=== PATIENT | male | born 1945 | race Caucasian/White ===

== ENCOUNTER → 2016-06-02 | Outpatient (CLI) | payer OTHER ==
[2016-06-02 12:21] LABS: BASO % 0.6 %; BASO ABS # 0.04 K/uL (0-0.2); COMPLETE YES; HEMATOCRIT 47.9 % (42-52); IG% 0.2 %; LYMPH % 26.1 %; LYMPH ABS # 1.61 K/uL (1.2-3.4); MEAN CELL VOLUME 91.8 fL (80-100); MEAN CORPUSCULAR HEMOGLOBIN 31.6 pg (25-34); MEAN CORPUSCULAR HGB CONC 34.4 g/dl (32-36); MEAN PLATELET VOLUME 10.6 fL (7.4-10.4); MONO % 7.3 %; NEUT % 64.8 %; PLATELET COUNT 234 K/uL (130-400); RED BLOOD COUNT 5.22 M/uL (4.7-6.1); WHITE BLOOD COUNT 6.16 K/uL (4.8-10.8)
[2016-06-02 13:03] LABS: ALB/GLOB RATIO 1.4 (0.9-2); ALKALINE PHOSPHATASE 69 U/L (45-117); ALT/SGPT 23 U/L (12-78); AST/SGOT 10 U/L (15-37); BLOOD UREA NITROGEN 15 mg/dl (7-18); BUN/CREATININE RATIO 16.8 (10-20); CALCIUM 9.5 mg/dl (8.5-10.1); CARBON DIOXIDE 28 mmol/L (21-32); CHLORIDE 104 mmol/L (98-107); CREATININE 0.87 mg/dl (0.60-1.40); GLUCOSE 98 mg/dl (70-99); SODIUM 141 mmol/L (136-145)
--- NOTE | 2016-06-03 08:51 | CODING QUERY NO DIAGNOSIS ---
TREATMENT RENDERED WITHOUT A DIAGNOSIS To promote full compliance with coding requirements relating to patient care, physician participation is requested in all cases of web development manager uncertainty. Please assist us with providing a diagnosis/symptom for the test(s) below: A diagnosis/symptom was not documented on your Order. A valid diagnosis/symptom is required to bill all insurances. Please remember that we are unable to code a diagnosis of rule out, probable, possible, questionable, or suspected. DATE OF SERVICE: 06/02/16 Tests that require a diagnosis: * IMMUNOGLOBULIN ASSAY, QUANT DIAGNOSIS: * KAPPA/LAMBDA LIGHT CHAINS, FREE W/RATIO, SERUM DIAGNOSIS: * PROTEIN ELECTROPHORESIS PANEL, 24 HR URINE DIAGNOSIS: * SERUM PROTEIN, ELECTROPHORESIS DIAGNOSIS: * CBC W/AUTO DIFF DIAGNOSIS: * CMP DIAGNOSIS: * IMMUNOFIXATION, 24 HR URINE DIAGNOSIS: Provider Signature: Date: Thank you Sintia Gould [facility] Information Management Once completed, please kindly fax back to [phone] For questions please call [phone]
[2016-06-03 11:03] LABS: FREE KAPPA 16.6 MG/L (3.3-19.4); FREE KAPPA/LAMBDA RATIO 1.43 (0.26-1.65); FREE LAMBDA 11.6 MG/L (5.7-26.3)
[2016-06-04 06:43] LABS: ALBUMIN 4.5 G/DL (3.8-4.8); GAMMA GLOBULIN 0.6 G/DL (0.8-1.7); IMMUNOFIXATION IGA SERUM 442 MG/DL (81-463); IMMUNOFIXATION IGG SERUM 558 MG/DL (694-1618); IMMUNOFIXATION IGM SERUM 67 MG/DL (48-271); TOTAL PROTEIN 6.9 G/DL (6.2-8.3)
[2016-06-07 11:54] LABS: CREATININE UR 111 MG/DL (20-370)
== END | disposition home or self-care (01) ==
LOC: C.LABPVFM 07:42
PROVIDERS: ATTEND Internal Medicine Hematology & Oncology
DX: D47.2 Monoclonal gammopathy (principal)

== ENCOUNTER → 2016-11-12 | Outpatient (CLI) | payer OTHER ==
[2016-11-12 13:17] LABS: CALCIUM 9.4 mg/dl (8.5-10.1)
[2016-11-12 13:19] LABS: ALT/SGPT 20 U/L (12-78); BLOOD UREA NITROGEN 11 mg/dl (7-18); BUN/CREATININE RATIO 11.4 (10-20); CARBON DIOXIDE 29 mmol/L (21-32); CHLORIDE 104 mmol/L (98-107); CHOLESTEROL 147 mg/dl (0-200); CREATININE 0.97 mg/dl (0.60-1.40); GLUCOSE 104 mg/dl (70-99); POTASSIUM 4.2 mmol/L (3.5-5.1); SODIUM 141 mmol/L (136-145); TRIGLYCERIDES 96 mg/dl (0-150); VERY LOW DENSITY LIPOPROT CALC 19 mg/dl
[2016-11-12 13:20] LABS: ESTIMATED AVERAGE GLUCOSE 108 mg/dl; HA1C FLAG Normal (Normal)
[2016-11-12 13:23] LABS: ALB/GLOB RATIO 1.3 (0.9-2); ALKALINE PHOSPHATASE 68 U/L (45-117); AST/SGOT 15 U/L (15-37); CHOLESTEROL/HDL RATIO 2.5; HDL CHOLESTEROL 59 mg/dl; LDL CHOLESTEROL CALCULATED 69 mg/dl
== END | disposition home or self-care (01) ==
LOC: C.LABPVFM 07:41
PROVIDERS: ATTEND Family Medicine
DX: R73.9 Hyperglycemia, unspecified (principal); E78.00 Pure hypercholesterolemia, unspecified; I10 Essential (primary) hypertension

== ENCOUNTER → 2017-01-14 | Outpatient (CLI) | payer OTHER ==
[2017-01-14 12:47] LABS: BASO % 0.4 %; BASO ABS # 0.02 K/uL (0-0.2); COMPLETE YES; EOS % 1.7 %; HEMATOCRIT 45.5 % (42-52); IG% 0.2 %; LYMPH % 22.7 %; LYMPH ABS # 1.21 K/uL (1.2-3.4); MEAN CELL VOLUME 91.5 fL (80-100); MEAN PLATELET VOLUME 10.9 fL (7.4-10.4); MONO % 9.2 %; NEUT % 65.8 %; PLATELET COUNT 220 K/uL (130-400); RED BLOOD COUNT 4.97 M/uL (4.7-6.1); WHITE BLOOD COUNT 5.32 K/uL (4.8-10.8)
[2017-01-14 13:03] LABS: ALKALINE PHOSPHATASE 67 U/L (45-117); ALT/SGPT 25 U/L (12-78); AST/SGOT 14 U/L (15-37); BLOOD UREA NITROGEN 10 mg/dl (7-18); BUN/CREATININE RATIO 12.6 (10-20); CALCIUM 9.1 mg/dl (8.5-10.1); CARBON DIOXIDE 28 mmol/L (21-32); CHLORIDE 107 mmol/L (98-107); CREATININE 0.81 mg/dl (0.60-1.40); GLUCOSE 100 mg/dl (70-99); SODIUM 139 mmol/L (136-145)
[2017-01-14 13:04] LABS: ALB/GLOB RATIO 1.3 (0.9-2)
[2017-01-17 11:10] LABS: FREE KAPPA 16.8 MG/L (3.3-19.4); FREE KAPPA/LAMBDA RATIO 1.65 (0.26-1.65); FREE LAMBDA 10.2 MG/L (5.7-26.3)
[2017-01-18 10:31] LABS: ALBUMIN 4.1 G/DL (3.8-4.8); GAMMA GLOBULIN 0.5 G/DL (0.8-1.7); TOTAL PROTEIN 6.5 G/DL (6.2-8.3)
== END | disposition home or self-care (01) ==
LOC: C.LABPVFM 07:38
PROVIDERS: ATTEND Internal Medicine Hematology & Oncology
DX: D47.2 Monoclonal gammopathy (principal)

== ENCOUNTER → 2017-02-14 | Outpatient (CLI) | payer OTHER | END | disposition home or self-care (01) | LOC: C.LAB1850 10:05 | PROVIDERS: ATTEND Internal Medicine Rheumatology | DX: E55.9 Vitamin D deficiency, unspecified (principal); M80.08XA Age-related osteoporosis with current pathological fracture, vertebra(e), initial encounter for fracture; M81.0 Age-related osteoporosis without current pathological fracture ==

== ENCOUNTER → 2017-03-14 | Outpatient (CLI) | payer OTHER | END | disposition home or self-care (01) | LOC: C.MAMM 10:24 | PROVIDERS: ATTEND Internal Medicine Rheumatology | DX: M80.08XA Age-related osteoporosis with current pathological fracture, vertebra(e), initial encounter for fracture (principal) ==

== ENCOUNTER → 2017-05-12 | Outpatient (CLI) | payer OTHER ==
[2017-05-12 13:35] LABS: ALT/SGPT 20 U/L (12-78); AST/SGOT 14 U/L (15-37); BLOOD UREA NITROGEN 13 mg/dl (7-18); BUN/CREATININE RATIO 13.7 (10-20); CARBON DIOXIDE 31 mmol/L (21-32); CHLORIDE 103 mmol/L (98-107); CREATININE 0.93 mg/dl (0.60-1.40); GLUCOSE 97 mg/dl (70-99); SODIUM 136 mmol/L (136-145)
[2017-05-12 13:38] LABS: ALB/GLOB RATIO 1.2 (0.9-2); ALKALINE PHOSPHATASE 79 U/L (45-117); CHOLESTEROL 118 mg/dl (0-200); CHOLESTEROL/HDL RATIO 2.1; HDL CHOLESTEROL 56 mg/dl; LDL CHOLESTEROL CALCULATED 45 mg/dl; TRIGLYCERIDES 86 mg/dl (0-150); VERY LOW DENSITY LIPOPROT CALC 17 mg/dl
== END | disposition home or self-care (01) ==
LOC: C.LABPVFM 07:53
PROVIDERS: ATTEND Family Medicine
DX: E78.00 Pure hypercholesterolemia, unspecified (principal); I10 Essential (primary) hypertension; M81.0 Age-related osteoporosis without current pathological fracture; D47.2 Monoclonal gammopathy

== ENCOUNTER → 2017-07-12 | Outpatient (CLI) | payer OTHER ==
[2017-07-12 12:42] LABS: BASO % 0.7 %; BASO ABS # 0.04 K/uL (0-0.2); EOS ABS # 0.06 K/uL (0-0.5); HEMATOCRIT 48.4 % (42-52); HEMOGLOBIN 16.7 g/dL (14.0-18.0); IG# 0.01 K/uL (0.00-0.02); LYMPH % 24.2 %; LYMPH ABS # 1.42 K/uL (1.2-3.4); MEAN CELL VOLUME 92.2 fL (80-100); MEAN CORPUSCULAR HEMOGLOBIN 31.8 pg (25-34); MEAN CORPUSCULAR HGB CONC 34.5 g/dl (32-36); MEAN PLATELET VOLUME 10.5 fL (7.4-10.4); MONO % 6.8 %; NEUT % 67.1 %; NEUT ABS # 3.94 K/uL (1.4-6.5); PLATELET COUNT 225 K/uL (130-400); RED CELL DISTRIBUTION WIDTH CV 13.2 % (11.5-14.5); RED CELL DISTRIBUTION WIDTH SD 44.3 fL (36.4-46.3); WHITE BLOOD COUNT 5.87 K/uL (4.8-10.8)
[2017-07-12 12:52] LABS: ALBUMIN 4.1 gm/dl (3.4-5.0); ALT/SGPT 24 U/L (12-78); AST/SGOT 13 U/L (15-37); BLOOD UREA NITROGEN 15 mg/dl (7-18); CALCIUM 9.2 mg/dl (8.5-10.1); CARBON DIOXIDE 28 mmol/L (21-32); CREATININE 1.04 mg/dl (0.60-1.40); GLUCOSE 95 mg/dl (70-99); POTASSIUM 3.8 mmol/L (3.5-5.1); SODIUM 137 mmol/L (136-145)
[2017-07-12 12:54] LABS: ALKALINE PHOSPHATASE 80 U/L (45-117); TOTAL PROTEIN 7.8 gm/dl (6.4-8.2)
== END | disposition home or self-care (01) ==
LOC: C.LABPVFM 07:35
PROVIDERS: ATTEND Internal Medicine Hematology & Oncology
DX: D47.2 Monoclonal gammopathy (principal)

== ENCOUNTER → 2018-01-09 | Outpatient (CLI) | payer OTHER ==
[2018-01-09 12:44] LABS: BASO % 0.3 %; BASO ABS # 0.02 K/uL (0-0.2); EOS % 1.4 %; HEMATOCRIT 51.1 % (42-52); HEMOGLOBIN 17.8 g/dL (14.0-18.0); IG# 0.01 K/uL (0.00-0.02); MEAN CELL VOLUME 93.4 fL (80-100); MEAN CORPUSCULAR HEMOGLOBIN 32.5 pg (25-34); MEAN CORPUSCULAR HGB CONC 34.8 g/dl (32-36); MEAN PLATELET VOLUME 10.8 fL (7.4-10.4); MONO % 5.6 %; MONO ABS # 0.39 K/uL (0.11-0.59); NEUT % 66.6 %; PLATELET COUNT 237 K/uL (130-400); RED CELL DISTRIBUTION WIDTH CV 13.3 % (11.5-14.5); RED CELL DISTRIBUTION WIDTH SD 45.4 fL (36.4-46.3); WHITE BLOOD COUNT 6.92 K/uL (4.8-10.8)
[2018-01-09 13:37] LABS: ALKALINE PHOSPHATASE 81 U/L (45-117); ALT/SGPT 22 U/L (12-78); AST/SGOT 13 U/L (15-37); BLOOD UREA NITROGEN 15 mg/dl (7-18); CALCIUM 9.2 mg/dl (8.5-10.1); CARBON DIOXIDE 26 mmol/L (21-32); GLUCOSE 97 mg/dl (70-99); SODIUM 135 mmol/L (136-145); TOTAL PROTEIN 7.5 gm/dl (6.4-8.2)
== END | disposition home or self-care (01) ==
LOC: C.LABPVFM 07:52
PROVIDERS: ATTEND Internal Medicine Hematology & Oncology
DX: D47.2 Monoclonal gammopathy (principal)

== ENCOUNTER 2021-10-09 20:27 | Observation (INO) ==
[2021-10-09] MEDS ORDERED: methylPREDNISolone 125 MG/2 ML VIAL IV STA (20:53)
[2021-10-09] MEDS ORDERED: ALBUTEROL HFA 8 GM INHALER INH ONE (20:53)
[2021-10-09 21:45] LABS: Hematocrit (blood only) 46.3 % (42-52); Hemoglobin 15.9 g/dL (14.0-18.0); Mean Corpuscular Hemoglobin 31.6 pg (25-34); Mean Corpuscular Hgb Conc 34.3 g/dL (32-36); Mean Platelet Volume 10.3 fL (7.4-10.4); Platelet Count 196 K/uL (130-400); RDW Coefficient of Variation 13.2 % (11.5-14.5); Red Blood Count 5.03 M/uL (4.7-6.1); White Blood Count 6.96 K/uL (4.8-10.8)
[2021-10-09 21:58] LABS: D Dimer 1420 ug/L FEU (0-500)
[2021-10-09 22:07] LABS: Influenza A virus by PCR Negative (Neg); Influenza B virus by PCR Negative (Neg); RSV by PCR Negative (Neg); SARS CoV2 RNA(COVID-19) InHosp NEGATIVE (Negative)
[2021-10-09 22:14] LABS: Basophils # (auto) 0.01 K/uL (0-0.2); Basophils % (auto) 0.1 %; Immature Granulocytes # (auto) 0.02 K/uL (0.00-0.02); Immature Granulocytes % (auto) 0.3 %; Lymphocytes # (auto) 0.34 K/uL (1.2-3.4); Lymphocytes % (auto) 4.9 %; Monocytes # (auto) 0.62 K/uL (0.11-0.59); Monocytes % (auto) 8.9 %; Neutrophils # (auto) 5.97 K/uL (1.4-6.5); Neutrophils % (auto) 85.8 %
[2021-10-09 22:17] LABS: Albumin Globulin Ratio 1.4 (0.9-2); Albumin Level 3.8 gm/dl (3.4-5.0); Bilirubin,Total 1.1 mg/dl (0.2-1.0); Calcium 9.8 mg/dl (8.5-10.1); Creatinine Clr Calc Pharmacy 70.1 ml/min; Est GFR (African American) 91.6 ml/min; Globulin 2.8 gm/dl (2.5-4.0); Potassium 3.1 mmol/L (3.5-5.1); Total Protein 6.6 gm/dl (6.0-8.3)
--- NOTE | 2021-10-09 23:08 | Emergency Department Note ---
Impression & Plan SOB (shortness of breath), Hypoxia, Pneumonia ED Provider Note INFORMANT: Patient ED PROVIDER(S): Steve Burnette MD CHIEF COMPLAINT: Shortness of breath PLAN: Disposition: Admitted Condition: Good Outpatient prescription management: none Referral: None MEDICAL DECISION MAKING: Patient presented because of shortness of breath and flulike symptoms. Patient's room air saturation in triage was 75%. Patient was hypoxic requiring significant submental oxygen at 5 L/min to maintain oxygen saturation of 92%. Initial COVID and flu testing performed and were negative. Chest x-ray and CT of the chest are concerning for pneumonia. No obvious PE noted. The patient had a normal ECG. Urinalysis was somewhat abnormal. His CBC was unremarkable. Mild hypokalemia on chemistry panel. D-dimer was significantly elevated prompting the previously mentioned CT scan. BNP and troponin negative. Patient was initially given an albuterol MDI 4 puffs and Solu-Medrol. This did help. He was doing well with supplemental oxygen. A DuoNeb was ordered. He was given IV cefepime and doxycycline after blood cultures. Consultation was made with Dr. Hudson Pierre of the [facility] service. Patient was evaluated in the ER for further management. Triage Nursing notes reviewed and agree them. Vital Signs: reviewed and remarkable for hypoxia Differential diagnosis: Reactive airway disease, pneumonia, pneumothorax, COPD, CHF, infections, cardiac ischemia, pulmonary embolism, musculoskeletal, gastrointestinal, as well as other pathologies. Diagnostics interpreted by me: EC Lead ECG performed and revealed Normal sinus rhythm at 93 normal [place], QRS normal. No elevation or depression. No PACs or PVCs Cardiac Monitoring: Cardiac monitoring ordered by me: The patient was placed on continuous cardiac monitoring and observed. It revealed a normal sinus rhythm at 87 beats per minute without ectopy or evidence of dysrhythmia. Imaging studies: Chest x-ray and CT scan as noted above HPI: The patient is a 76 year old male who presents to the Emergency Room with complaints of short. This started yesterday and is worsening. The patient also notes the following associated symptoms, cough and bilateral rib pain with coughing. The patient has found no relieving factors. Current pain is rated as 0/10. Patient has a history of COPD. He states he has had a history of res piratory infections about every year but has not had one in about 2 years. Denies any sick contacts that he is aware of. Pt denies LOC, headache, fevers, chills, diaphoresis, visual changes, neck pain, nausea, vomiting, abdominal pain, back pain, melena, hematochezia, urinary symptoms, numbness, weakness, lymphadenopathy, rash, or other complaints. ROS: See above HPI for pertinent positives & negatives. A total of 10 systems reviewed and were otherwise negative. PAST MEDICAL HISTORY:See Below , COPD PAST SURGICAL HISTORY:See Below, FAMILY HISTORY:See Below SOCIAL HISTORY:See Below, smoker HOME MEDICATIONS:See Below ALLERGIES:See Below VITALS:See Below PHYSICAL EXAMINATION: GENERAL: Awake, alert, dyspneic-appearing, in no distress HENT: Normocephalic, atraumatic. Oropharynx unremarkable. EYES: Normal conjunctiva. Sclera non-icteric. NECK: Inspection normal. Non-tender. Supple. No nuchal rigidity. FROM. No masses. RESPIRATORY: Decreased air movement bilaterally. Frequent cough. No wheezes. No rales. Increase respiratory effort. CARDIAC: Normal rate. Normal rhythm. No murmurs. No rubs. Extremities warm and well perfused. Pulses equal. No JVD. GI: Soft, non-distended. No tenderness to palpation. No rebound or guarding. No masses. RECTAL: Deferred. MUSCULOSKELETAL: Atraumatic. Chest examination reveals no tenderness. The back is symmetrical on inspection without obvious abnormality. There is no CVA tenderness to palpation. No joint edema. LOWER EXTREMITIES: Calves are equal size bilaterally and non-tender. No edema. No discoloration. NEURO: Normal sensorium. No sensory or motor deficits noted. SKIN: Mild sunburn. No rash or jaundice noted. CRITICAL CARE: I have personally spent greater than 35 minutes of critical care time in the direct management of this patient. This includes bedside care, interpretation of diagnostic studies, and testing, discussion with consultants, patient, and f amily members, and other required patient management activities. These minutes are in excess of all separately billable procedures. Steve Burnette MD Past Med/Surg History Medical History COPD exacerbation Hypercholesterolemia Surgical History History of laparoscopic cholecystectomy Family History Brother Myocardial infarction Cancer Sister Breast cancer Pancreatic cancer Father Prostate cancer Denies family history of Ovarian cancer Colorectal cancer Social History Smoking Status: Current every day smoker Tobacco Type: Cigarettes Cigarettes Per Day: 20-30; Second Hand Exposure: Yes; Hx Alcohol Use: Yes Hx Substance Use: No Preferred Language: Egyptian Communication Ability: Effective Hearing Ability: Use of Hearing Aid Farmworkers Required: No Beliefs That Will Affect Care: None marital status: Current Living Situation: Family current occupational status: retired How many Children do You have: 2 Feels Safe at Home: Yes Childhood Exposure to Second-Hand Smoke: Yes caffeine: Yes Dental Care, Regularly: Yes Physical Activity Frequency: Daily Seatbelt Use: never Sunscreen Use: Yes Allergies Allergies Allergy/AdvReac Type Severity Reaction Status Date / Time No Known Drug Allergies AdvReac Verified 10/10/21 00:01 Home Meds Home Medications Medication Instructions Recorded Confirmed cholecalciferol (vitamin D3) 125 5,000 unit PO DAILY cap 11/13/18 10/09/21 mcg (5,000 unit) capsule multivitamin (Daily Multi-Vitamin) 1 tab PO DAILY 12/02/18 10/09/21 albuterol sulfate 90 mcg/actuation 1 puff INH QID PRN g 08/28/20 10/09/21 aerosol inhaler (ProAir HFA) atorvastatin 20 mg tablet 20 mg PO QPM 10/09/21 10/09/21 calcium 500 mg tablet 500 mg PO DAILY 10/09/21 10/09/21 calcium carbonate 500 mg calcium 500 mg PO DAILY 10/10/21 10/10/21 (1,250 mg) tablet Previous Rx's Medication Instructions Recorded hydrochlorothiazide 25 mg tablet 25 mg PO DAILY #90 tab 08/28/20 finasteride 5 mg tablet 5 mg PO DAILY #30 tab 02/18/21 Results & Data (ED) Vital Signs Vital Signs - 24 hr 10/09/21 20:30 10/09/21 21:05 10/09/21 21:07 Temperature 35.9 C L Temperature Source Temporal Artery Scan Pulse Rate 101 H 92 H Pulse Rate [Left] 87 Pulse Rhythm Regular Pulse Rhythm [Left] Regular Pulse Strength [Left] Normal Respiratory Rate 18 20 20 Respiratory Effort / Characteristics Non-Labored Spontaneous Short of Breath Respiratory Depth Normal Respiratory Pattern Regular Blood Pressure 139/78 Blood Pressure [Left Arm] 132/75 Blood Pressure Mean 98 Blood Pressure Mean [Left Arm] 94 Blood Pressure Position Sitting Blood Pressure Position [Left Arm] Sitting Pulse Oximetry 91 95 94 Oxygen Delivery Method Nasal Cannula Nasal Cannula Nasal Cannula Oxygen Flow Rate 5 2 2 Sepsis Recent Fever Within 48 Hours No Sepsis New/Unexplained Change in Mental Status N/A Sepsis Action Taken by Nursing No Action Required 10/09/21 21:22 10/09/21 23:46 Temperature Temperature Source Pulse Rate Pulse Rate [Left] 74 Pulse Rhythm Pulse Rhythm [Left] Regular Pulse Strength [Left] Normal Respiratory Rate 18 Respiratory Effort / Characteristics Non-Labored Respiratory Depth Normal Respiratory Pattern Regular Blood Pressure Blood Pressure [Left Arm] 95/54 L Blood Pressure Mean Blood Pressure Mean [Left Arm] 67 Blood Pressure Position Blood Pressure Position [Left Arm] Sitting Pulse Oximetry 94 92 Oxygen Delivery Method Nasal Cannula Nasal Cannula Oxygen Flow Rate 5 5 Sepsis Recent Fever Within 48 Hours Sepsis New/Unexplained Change in Mental Status Sepsis Action Taken by Nursing Laboratory Data Result diagrams: 10/09/21 21:19 10/09/21 21:19 Lab Results 10/09/21 10/09/21 10/09/21 Range/Units 21:19 21:19 21:19 WBC 6.96 (4.8-10.8) K/uL RBC 5.03 (4.7-6.1) M/uL Hgb 15.9 (14.0-18.0) g/dL Hct 46.3 (42-52) % MCV 92.0 (80-100) fL MCH 31.6 (25-34) pg MCHC 34.3 (32-36) g/dL RDW Std Deviation 44.0 (36.4-46.3) fL RDW Coeff of Linda 13.2 (11.5-14.5) % Plt Count 196 (130-400) K/uL MPV 10.3 (7.4-10.4) fL Immature Gran % (Auto) 0.3 % Neut % (Auto) 85.8 % Lymph % (Auto) 4.9 % [place] % (Auto) 8.9 % Eos % (Auto) 0.0 % Baso % (Auto) 0.1 % Neut # (Auto) 5.97 (1.4-6.5) K/uL Lymph # (Auto) 0.34 L (1.2-3.4) K/uL [place] # (Auto) 0.62 H (0.11-0.59) K/uL Eos # (Auto) 0.00 (0-0.5) K/uL Baso # (Auto) 0.01 (0-0.2) K/uL Immature Gran # (Auto) 0.02 (0.00-0.02) K/uL D-Dimer 1420 H* (0-500) ug/L FEU Sodium (136-145) mmol/L Potassium (3.5-5.1) mmol/L Chloride (98-107) mmol/L Carbon Dioxide (21-32) mmol/L Anion Gap (3-11) BUN (6-23) mg/dl Creatinine (0.6-1.4) mg/dl Est Cr Clr Drug Dosing ml/min Est GFR ( Amer) ml/min Est GFR (Non-Af Amer) ml/min BUN/Creatinine Ratio (10-20) Glucose (70-99(Fasting)) mg/dl Calcium (8.5-10.1) mg/dl Total Bilirubin (0.2-1.0) mg/dl AST (13-39) U/L ALT (7-52) U/L Alkaline Phosphatase (34-104) U/L Troponin I High Sens 10.8 (0-20) pg/ml B-Natriuretic Peptide (0-100) pg/ml Total Protein (6.0-8.3) gm/dl Albumin (3.4-5.0) gm/dl Globulin (2.5-4.0) gm/dl Albumin/Globulin Ratio (0.9-2) Urine Color Urine Appearance (Clear) Urine pH (4.5-7.5) Ur Specific [place] (1.000-1.030) Urine Protein (Negative) Urine Glucose (UA) (Negative) Urine Ketones (Negative) Urine Blood (Negative) Urine Nitrite (Negative) Urine Bilirubin (Negative) Urine Urobilinogen (Negative) Ur Leukocyte Esterase (Negative) Urine WBC (Auto) (0-5) /hpf Urine RBC (Auto) (0-4) /hpf U Hyaline Cast (Auto) U Epithel Cells (Auto) (0-5) /lpf Urine Bacteria (Auto) (Negative) Adenovirus (PCR) (NotDetected) B. pertussis DNA (PCR) (NotDetected) B.parapertussis DNA PCR (NotDetected) C. pneumoniae DNA (PCR) (NotDetected) Coronavirus OC43 (PCR) (NotDetected) Coronavirus HKU1 (PCR) (NotDetected) Coronavirus 229E (PCR) (NotDetected) SARS-CoV-2 (PCR) (Negative) Coronavirus NL63 (PCR) (NotDetected) Human Metapneumovir PCR (NotDetected) Influenza Type A (PCR) (Neg) Influenza Type B (PCR) (Neg) M. pneumoniae (PCR) (NotDetected) Parainfluenza 1 (PCR) (NotDetected) Parainfluenza 2 (PCR) (NotDetected) Parainfluenza 3 (PCR) (NotDetected) Parainfluenza 4 (PCR) (NotDetected) RSV (RT-PCR) (Neg) RSV (PCR) (NotDetected) Entero/Rhino (PCR) (NotDetected) 10/09/21 10/09/21 10/09/21 Range/Units 21:19 21:19 21:19 WBC (4.8-10.8) K/uL RBC (4.7-6.1) M/uL Hgb (14.0-18.0) g/dL Hct (42-52) % MCV (80-100) fL MCH (25-34) pg MCHC (32-36) g/dL RDW Std Deviation (36.4-46.3) fL RDW Coeff of Linda (11.5-14.5) % Plt Count (130-400) K/uL MPV (7.4-10.4) fL Immature Gran % (Auto) % Neut % (Auto) % Lymph % (Auto) % [place] % (Auto) % Eos % (Auto) % Baso % (Auto) % Neut # (Auto) (1.4-6.5) K/uL Lymph # (Auto) (1.2-3.4) K/uL [place] # (Auto) (0.11-0.59) K/uL Eos # (Auto) (0-0.5) K/uL Baso # (Auto) (0-0.2) K/uL Immature Gran # (Auto) (0.00-0.02) K/uL D-Dimer (0-500) ug/L FEU Sodium 135 L (136-145) mmol/L Potassium 3.1 L (3.5-5.1) mmol/L Chloride 94 L (98-107) mmol/L Carbon Dioxide 32 (21-32) mmol/L Anion Gap 9 (3-11) BUN 15 (6-23) mg/dl Creatinine 0.94 (0.6-1.4) mg/dl Est Cr Clr Drug Dosing 70.1 ml/min Est GFR ( Amer) 91.6 ml/min Est GFR (Non-Af Amer) 79.0 ml/min BUN/Creatinine Ratio 16.0 (10-20) Glucose 132 H (70-99(Fasting)) mg/dl Calcium 9.8 (8.5-10.1) mg/dl Total Bilirubin 1.1 H (0.2-1.0) mg/dl AST 15 (13-39) U/L ALT 10 (7-52) U/L Alkaline Phosphatase 67 (34-104) U/L Troponin I High Sens (0-20) pg/ml B-Natriuretic Peptide (0-100) pg/ml Total Protein 6.6 (6.0-8.3) gm/dl Albumin 3.8 (3.4-5.0) gm/dl Globulin 2.8 (2.5-4.0) gm/dl Albumin/Globulin Ratio 1.4 (0.9-2) Urine Color Urine Appearance (Clear) Urine pH (4.5-7.5) Ur Specific [place] (1.000-1.030) Urine Protein (Negative) Urine Glucose (UA) (Negative) Urine Ketones (Negative) Urine Blood (Negative) Urine Nitrite (Negative) Urine Bilirubin (Negative) Urine Urobilinogen (Negative) Ur Leukocyte Esterase (Negative) Urine WBC (Auto) (0-5) /hpf Urine RBC (Auto) (0-4) /hpf U Hyaline Cast (Auto) U Epithel Cells (Auto) (0-5) /lpf Urine Bacteria (Auto) (Negative) Adenovirus (PCR) Not Detected (NotDetected) B. pertussis DNA (PCR) Not Detected (NotDetected) B.parapertussis DNA PCR Not Detected (NotDetected) C. pneumoniae DNA (PCR) Not Detected (NotDetected) Coronavirus OC43 (PCR) Not Detected (NotDetected) Coronavirus HKU1 (PCR) Not Detected (NotDetected) Coronavirus 229E (PCR) Not Detected (NotDetected) SARS-CoV-2 (PCR) NEGATIVE Not Detected (Negative) Coronavirus NL63 (PCR) Not Detected (NotDetected) Human Metapneumovir PCR Not Detected (NotDetected) Influenza Type A (PCR) Negative Not Detected (Neg) Influenza Type B (PCR) Negative Not Detected (Neg) M. pneumoniae (PCR) Not Detected (NotDetected) Parainfluenza 1 (PCR) Not Detected (NotDetected) Parainfluenza 2 (PCR) Not Detected (NotDetected) Parainfluenza 3 (PCR) Not Detected (NotDetected) Parainfluenza 4 (PCR) Not Detected (NotDetected) RSV (RT-PCR) Negative (Neg) RSV (PCR) Not Detected (NotDetected) Entero/Rhino (PCR) Not Detected (NotDetected) 10/09/21 10/09/21 Range/Units 21:22 22:33 WBC (4.8-10.8) K/uL RBC (4.7-6.1) M/uL Hgb (14.0-18.0) g/dL Hct (42-52) % MCV (80-100) fL MCH (25-34) pg MCHC (32-36) g/dL RDW Std Deviation (36.4-46.3) fL RDW Coeff of Linda (11.5-14.5) % Plt Count (130-400) K/uL MPV (7.4-10.4) fL Immature Gran % (Auto) % Neut % (Auto) % Lymph % (Auto) % [place] % (Auto) % Eos % (Auto) % Baso % (Auto) % Neut # (Auto) (1.4-6.5) K/uL Lymph # (Auto) (1.2-3.4) K/uL [place] # (Auto) (0.11-0.59) K/uL Eos # (Auto) (0-0.5) K/uL Baso # (Auto) (0-0.2) K/uL Immature Gran # (Auto) (0.00-0.02) K/uL D-Dimer (0-500) ug/L FEU Sodium (136-145) mmol/L Potassium (3.5-5.1) mmol/L Chloride (98-107) mmol/L Carbon Dioxide (21-32) mmol/L Anion Gap (3-11) BUN (6-23) mg/dl Creatinine (0.6-1.4) mg/dl Est Cr Clr Drug Dosing ml/min Est GFR ( Amer) ml/min Est GFR (Non-Af Amer) ml/min BUN/Creatinine Ratio (10-20) Glucose (70-99(Fasting)) mg/dl Calcium (8.5-10.1) mg/dl Total Bilirubin (0.2-1.0) mg/dl AST (13-39) U/L ALT (7-52) U/L Alkaline Phosphatase (34-104) U/L Troponin I High Sens (0-20) pg/ml B-Natriuretic Peptide 71 (0-100) pg/ml Total Protein (6.0-8.3) gm/dl Albumin (3.4-5.0) gm/dl Globulin (2.5-4.0) gm/dl Albumin/Globulin Ratio (0.9-2) Urine Color Dark Yellow Urine Appearance Clear (Clear) Urine pH 5.0 (4.5-7.5) Ur Specific [place] 1.029 (1.000-1.030) Urine Protein 1+ H (Negative) Urine Glucose (UA) Negative (Negative) Urine Ketones Negative (Negative) Urine Blood Trace H (Negative) Urine Nitrite Positive A (Negative) Urine Bilirubin 1+ H (Negative) Urine Urobilinogen Negative (Negative) Ur Leukocyte Esterase Negative (Negative) Urine WBC (Auto) 1-5 (0-5) /hpf Urine RBC (Auto) 5-10 H (0-4) /hpf U Hyaline Cast (Auto) Not Reportable U Epithel Cells (Auto) 10-20 H (0-5) /lpf Urine Bacteria (Auto) Negative (Negative) Adenovirus (PCR) (NotDetected) B. pertussis DNA (PCR) (NotDetected) B.parapertussis DNA PCR (NotDetected) C. pneumoniae DNA (PCR) (NotDetected) Coronavirus OC43 (PCR) (NotDetected) Coronavirus HKU1 (PCR) (NotDetected) Coronavirus 229E (PCR) (NotDetected) SARS-CoV-2 (PCR) (Negative) Coronavirus NL63 (PCR) (NotDetected) Human Metapneumovir PCR (NotDetected) Influenza Type A (PCR) (Neg) Influenza Type B (PCR) (Neg) M. pneumoniae (PCR) (NotDetected) Parainfluenza 1 (PCR) (NotDetected) Parainfluenza 2 (PCR) (NotDetected) Parainfluenza 3 (PCR) (NotDetected) Parainfluenza 4 (PCR) (NotDetected) RSV (RT-PCR) (Neg) RSV (PCR) (NotDetected) Entero/Rhino (PCR) (NotDetected) Administered Medications Discontinued Medications Albuterol (Albuterol Hfa 8 Gm Inhaler) 4 puffs INH NOW ONE Stop: 10/09/21 20:54 Last Admin: 10/09/21 21:15 Dose: 4 puffs Documented by: [id number] Albuterol (Albut/Ipratrop 3mg/0.5mg Neb 3 Ml Vial) 3 ml NEB NOW STA; Protocol Stop: 10/10/21 00:07 Last Admin: 10/10/21 00:37 Dose: 3 ml Documented by: [id number] Cefepime HCl (Maxipime) 2,000 mg in 20 mls @ 5 mls/min IV NOW STA; Protocol Stop: 10/10/21 00:09 Last Admin: 10/10/21 00:37 Dose: 5 mls/min Documented by: [id number] Sodium Chloride (Nss 1000ml) 500 mls @ 999 mls/hr IV .Q31M ONE Stop: 10/10/21 00:36 Last Admin: 10/10/21 00:47 Dose: 999 mls/hr Documented by: [id number] Ioversol (Optiray 320 125ml) 120 ml IV ONCE ONE Stop: 10/09/21 23:14 Last Admin: 10/09/21 23:14 Dose: 120 ml Documented by: [id number] Methylprednisolone (Methylprednisolone 125 Mg/2 Ml Vial) 125 mg IV NOW STA Stop: 10/09/21 20:54 Last Admin: 10/09/21 21:16 Dose: 125 mg Documented by: [id number] Discharge Plan Visit Data Chief Complaint: Illness Stated Complaint: SHORTNESS OF BREATH,COUGHING, ED Provider: Steve Burnette Discharge Problem: SOB (shortness of breath), Hypoxia, Pneumonia Forms Stand Alone Forms: [facility] Prescriptions Prescriptions: No Action albuterol sulfate [ProAir HFA] 90 mcg/actuation HFA aerosol inhaler 1 puff INH QID PRN (Reason: Shortness Of Breath Or Wheezing) RF: 0 hydrochlorothiazide 25 mg tablet 25 mg PO DAILY Qty: 90 RF: 3 finasteride 5 mg tablet 5 mg PO DAILY Qty: 30 RF: 11 cholecalciferol (vitamin D3) 5,000 unit capsule 5,000 unit PO DAILY RF: 0 multivitamin [Daily Multi-Vitamin] tablet 1 tab PO DAILY RF: 0 atorvastatin 20 mg tablet 20 mg PO QPM RF: 0 calcium 500 mg Tablet 500 mg PO DAILY RF: 0 calcium carbonate [Calcium 500] 500 mg calcium (1,250 mg) Tablet 500 mg PO DAILY RF: 0 Referrals Referrals: Luis Fernando Noriega DO [Primary Care Provider] -
[2021-10-09 23:11] LABS: Appearance Urine Clear (Clear); Bacteria Urine Automated Negative (Negative); Blood Urine Trace (Negative); Color Urine Dark Yellow; Glucose Urine UA Negative (Negative); Ketones Urine Negative (Negative); Leukocyte Esterase Urine Negative (Negative); Nitrite Urine Positive (Negative); Protein Urine 1+ (Negative); Specific Gravity Urine 1.029 (1.000-1.030); Urobilinogen Urine Negative (Negative)
[2021-10-09 23:13] LABS: Bilirubin Urine 1+ (Negative)
[2021-10-09] MEDS ORDERED: OPTIRAY 320 125ml IV ONE (23:13)
[2021-10-10] MEDS ORDERED: SODIUM CHLORIDE 0.9% 1000ML 1,000 ML IV STA (00:06)
[2021-10-10] MEDS ORDERED: DOXYCYCLINE HYCLATE 100 MG in DEXTROSE 5% 100 ML IV STA (00:06)
[2021-10-10] MEDS ORDERED: SODIUM CHLORIDE 0.9% 1000ML 500 ML IV ONE (00:06)
[2021-10-10] MEDS ORDERED: CEFEPIME 2,000 MG/20 ML VIAL IV STA (00:06)
[2021-10-10] MEDS ORDERED: ALBUT/IPRATROP 3MG/0.5MG NEB 3 ML VIAL NEB STA (00:06)
--- NOTE | 2021-10-10 00:27 | History & Physical Report ---
Date of Service October 10, 2021 Assessment & Plan (1) Acute respiratory failure with hypoxia: Plan: 76 year old male smoker w/ MGUS, htn, HLD, COPD w/ emphysema, and bph who presents w/ dyspnea and low grade temps most likely secondary to community acquired pneumonia. - Sepsis; SIRS 2/4 (temp 35.7C and HR); pulmonary source - continue NSS 125/hr - New 5L O2 requirement. Titrate to goal of >90% - Lower suspicion for CHF. Check BNP in AM. - Continue cefepime and doxycycline (atypical coverage) - Methylpred 40 q8 and duoneb for COPD - Incentive spirometry, flutter valve, Mucinex, hypertonic neb treatments - Blood cultures pending - CTA neg for PE (2) COPD with emphysema: Plan: - see above - consider outpatient PFTs (3) Pneumonia: Plan: - see above - given bilateral infiltrates noted on CTA, considered atypical pneumonia vs viral - viral respiratory panel was negative - check nasal mrsa (4) Hypertension: Plan: - hold home regimen given soft BPs (95/54 x1) (5) Dyslipidemia: Plan: - continue home regimen (6) Tobacco use disorder: Plan: - nicotine patch ordered - continue counseling on smoking cessation (7) MGUS (monoclonal gammopathy of unknown significance): Plan: - noted hx. Patient follows hematology. (8) Hypokalemia: Plan: - repleting, follow BMP Plan: FEN/GI: regular diet, minced/moist. NSS 125/hr ppx: Lovenox code: full dispo: med tele. PT/OT ordered. History of Present Illness Chief Complaint: dyspnea Primary Care Provider: Luis Fernando Noriega, 76 year old male w/ MGUS, htn, HLD, COPD w/ emphysema (no home O2), and BPH who presents w/ dyspnea since yesterday. He states his symptoms feels like a cold and his last serious respiratory infection was 2 years ago. Temp of 100.3F last night. He has had flu shot and first covid booster. Denies chills, cough. Sputum is white. Smokes 8 cigarettes/day. No sick contact. No diarrhea, loss of taste or smell. + fatigue x 1 week. Decreased appetite and PO intake. He has been prescribed a rescue inhaler, but does not use it routinely. 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 Currently, he is feeling a little better and is breathing more comfortably. ED course: 5L O2. Doxycycline IV. NSS 1.5L. Duoneb. Cefepime. Methylpred 125mg. CTA neg for PE and pos for patchy bilateral infiltrates. Allergies Allergy/AdvReac Type Severity Reaction Status Date / Time No Known Drug Allergies AdvReac Verified 10/10/21 00:01 Home Medications Medication Instructions Recorded Confirmed Type cholecalciferol (vitamin D3) 125 5,000 unit PO DAILY cap 11/13/18 10/09/21 History mcg (5,000 unit) capsule multivitamin (Daily Multi-Vitamin) 1 tab PO DAILY 12/02/18 10/09/21 History albuterol sulfate 90 mcg/actuation 1 puff INH QID PRN g 08/28/20 10/09/21 History aerosol inhaler (ProAir HFA) hydrochlorothiazide 25 mg tablet 25 mg PO DAILY #90 tab 08/28/20 10/09/21 Rx finasteride 5 mg tablet 5 mg PO DAILY #30 tab 02/18/21 10/09/21 Rx atorvastatin 20 mg tablet 20 mg PO QPM 10/09/21 10/09/21 History calcium 500 mg tablet 500 mg PO DAILY 10/09/21 10/09/21 History calcium carbonate 500 mg calcium 500 mg PO DAILY 10/10/21 10/10/21 History (1,250 mg) tablet Past Med/Surg History Medical History COPD exacerbation Hypercholesterolemia Surgical History History of laparoscopic cholecystectomy Family History Brother Myocardial infarction Cancer Sister Breast cancer Pancreatic cancer Father Prostate cancer Denies family history of Ovarian cancer Colorectal cancer Social History Smoking Status: Current every day smoker Tobacco Type: Cigarettes Cigarettes Per Day: 20-30; Second Hand Exposure: No; Do You Dip or Chew Tobacco: No; Hx Alcohol Use: Yes Alcohol type: beer Hx Substance Use: No Preferred Language: Czech Communication Ability: Effective Hearing Ability: Use of Hearing Aid Actuarial Mathematician Required: No Beliefs That Will Affect Care: None marital status: Current Living Situation: Spouse current occupational status: retired How many Children do You have: 2 Other Information That Helps Us Care for You: No Feels Safe at Home: Yes Safety Concerns: Feels Safe At This Time Childhood Exposure to Second-Hand Smoke: Yes caffeine: Yes Dental Care, Regularly: Yes Physical Activity Frequency: Daily Seatbelt Use: never Sunscreen Use: Yes Assistive Devices: Glasses and Hearing Aid - Bilateral Assistive Devices Comment: Wears b/l hearing aids but did not bring to hospital. Review of Systems Review of Systems: All systems reviewed & are unremarkable except as noted in HPI & below Physical Exam Physical Exam: General: Grossly A&O. NAD. Cooperative. HEENT: Atraumatic, normocephalic. EOMI Pulm: Diminished lung sounds. + loud transmitted upper airways sounds, including crackles and wheeze-type sounds. Brief expiratory wheezes heard diffusely. + Crackles, more prominent on right lung field .No accessory muscle use. Cardiac: RRR, -mrg. Radial pulses intact and symmetrical. Abdominal: Nontender, nondistended, soft. Integ: Warm, dry, intact. Results & Data Results & Data ([facility]) Vital Signs (Past 12 Hours) Vital Signs Temp Pulse Pulse Resp BP BP Pulse Ox 10/09/21 23:46 74 18 95/54 L 92 10/09/21 21:22 94 10/09/21 21:07 87 20 132/75 94 10/09/21 21:05 92 H 20 95 10/09/21 20:30 35.9 C L 101 H 18 139/78 91 Laboratory Results no leukocytosis. d dimer 1420. CTA neg for PE. Na 135. K 3.1 Cardiac Enzymes 10/09/21 10/09/21 10/09/21 Range/Units 21:19 21:19 21:22 AST 15 (13-39) U/L Troponin I High Sens 10.8 (0-20) pg/ml B-Natriuretic Peptide 71 (0-100) pg/ml Coagulation 10/09/21 Range/Units 21:22 B-Natriuretic Peptide 71 (0-100) pg/ml CBC 10/09/21 Range/Units 21:19 WBC 6.96 (4.8-10.8) K/uL RBC 5.03 (4.7-6.1) M/uL Hgb 15.9 (14.0-18.0) g/dL Hct 46.3 (42-52) % Plt Count 196 (130-400) K/uL Neut # (Auto) 5.97 (1.4-6.5) K/uL Lymph # (Auto) 0.34 L (1.2-3.4) K/uL Navarro # (Auto) 0.62 H (0.11-0.59) K/uL Eos # (Auto) 0.00 (0-0.5) K/uL Baso # (Auto) 0.01 (0-0.2) K/uL Comprehensive Metabolic Panel 10/09/21 Range/Units 21:19 Sodium 135 L (136-145) mmol/L Potassium 3.1 L (3.5-5.1) mmol/L Chloride 94 L (98-107) mmol/L Carbon Dioxide 32 (21-32) mmol/L BUN 15 (6-23) mg/dl Creatinine 0.94 (0.6-1.4) mg/dl Glucose 132 H (70-99(Fasting)) mg/dl Calcium 9.8 (8.5-10.1) mg/dl AST 15 (13-39) U/L ALT 10 (7-52) U/L Alkaline Phosphatase 67 (34-104) U/L Total Protein 6.6 (6.0-8.3) gm/dl Albumin 3.8 (3.4-5.0) gm/dl Intake and Output 10/09/21 10/09/21 10/10/21 14:59 22:59 06:59 Other: Weight 80.4 kg 80.4 kg Weight Measurement Method Chair Scale Patient Weight 10/10/21 06:59 Weight 80.4 kg Diagnostic Findings statrad Preliminary Findings Only-See Final Report For Complete Findings CTA CHEST: Comparison: CT chest 01/12/21 Limited by respiratory motion. Pulmonary arterial hypertension. No evidence of acute pulmonary embolism as visualized. Respiratory motion obscures the distal pulmonary artery branch vessels. Coronary artery atherosclerosis. Normal heart size. No pericardial effusion. No thoracic aortic aneurysm or dissection. Borderline mediastinal and right hilar adenopathy. Emphysema. Patchy bilateral infiltrates concerning for pneumonia, to include viral/atypical pneumonia. No pleural effusion or pneumothorax. No acute osseous findings. Radiologist: Antoinette Reis M.D. Study ready at 23:16 and initial results transmitted at 23:40. cxr per my read: Patchy bibasilar opacities, more prominent on right. ECG Rate (beats per minute): 93 Rhythm: normal sinus Additional Comments: Normal axis and intervals. Mild artifact: wavy baseline. Code Status & VTE Plan Code Status full VTE Prophylaxis Plan VTE Prophylaxis will be ordered: Yes Supervising Physician Co-Signing Physician Notes Attending addendum: I have physically seen this patient, have supervised the medical residents activities, and agree with the H&P unless as otherwise noted. Assessment and Plan: Acute respiratory failure with hypoxia/COPD exacerbation/bilateral pneumonia Tobacco cessation encouraged Continue cefepime and Doxy cycling IV begun in ED Methylprednisolone 40 mg IV every 8 hours Duonebs every 4 hours while awake and every 2 hours when necessary. Follow sputum culture and sensitivity Follow blood culture and sensitivity Negative bio fire Remaining orders and notations as noted Resident Activity Tracking Resident Involvement: Resident Care Provided Care Provided: Adult Hospital Medicine
[2021-10-10 01:10] LABS: Adenovirus PCR Not Detected (NotDetected); Bordetella parapertussis PCR Not Detected (NotDetected); Bordetella pertussis PCR Not Detected (NotDetected); Chlamydia pneumoniae PCR Not Detected (NotDetected); Coronavirus 229E PCR Not Detected (NotDetected); Coronavirus CoV-2 (COVID19)PCR Not Detected (NotDetected); Coronavirus HKU1 PCR Not Detected (NotDetected); Coronavirus NL63 PCR Not Detected (NotDetected); Coronavirus OC43PCR Not Detected (NotDetected); Human Metapneumovirus PCR Not Detected (NotDetected); Influenza A PCR Not Detected (NotDetected); Influenza B PCR Not Detected (NotDetected); Mycoplasma pneumoniae PCR Not Detected (NotDetected); Parainfluenza Virus 1 PCR Not Detected (NotDetected); Parainfluenza Virus 2 PCR Not Detected (NotDetected); Parainfluenza Virus 3 PCR Not Detected (NotDetected); Parainfluenza Virus 4 PCR Not Detected (NotDetected); Respiratory Syncytial VirusPCR Not Detected (NotDetected); Rhinovirus/Enterovirus PCR Not Detected (NotDetected)
[2021-10-10] MEDS ORDERED: POTASSIUM CHLORIDE CRTAB 20 MEQ TABCR PO STA (02:15)
[2021-10-10] MEDS ORDERED: ALBUT/IPRATROP 3MG/0.5MG NEB 3 ML VIAL NEB PRN (03:27)
[2021-10-10] MEDS ORDERED: ACETAMINOPHEN 325 MG TAB PO PRN (03:27)
[2021-10-10] MEDS ORDERED: ONDANSETRON INJ 2 MG/ML 2 ML VIAL IV PRN (03:27)
[2021-10-10] MEDS ORDERED: POLYETHYLENE (MIRALAX) 17 GM PACK PO PRN (03:27)
[2021-10-10] MEDS: methylPREDNISolone 40 MG in SYRINGE 0 ML IV SCH ×3 (05:58→21:44)
[2021-10-10 06:42] LABS: Hemoglobin 14.5 g/dL (14.0-18.0); Mean Corpuscular Hemoglobin 31.7 pg (25-34); Mean Corpuscular Hgb Conc 33.7 g/dL (32-36); Mean Corpuscular Volume 93.9 fL (80-100); Mean Platelet Volume 10.1 fL (7.4-10.4); Platelet Count 201 K/uL (130-400); RDW Coefficient of Variation 13.1 % (11.5-14.5); Red Blood Count 4.58 M/uL (4.7-6.1); White Blood Count 6.67 K/uL (4.8-10.8)
[2021-10-10 07:13] LABS: Albumin Globulin Ratio 1.3 (0.9-2); Albumin Level 3.5 gm/dl (3.4-5.0); BUN Creatinine Ratio 17.6 (10-20); Bilirubin,Total 0.6 mg/dl (0.2-1.0); Calcium 9.3 mg/dl (8.5-10.1); Creatinine Clr Calc Pharmacy 91.9 ml/min; Est GFR (African American) 104.6 ml/min; Est GFR (Non-African American) 90.2 ml/min; Globulin 2.7 gm/dl (2.5-4.0); Magnesium 1.8 mg/dl (1.7-2.4); Potassium 3.7 mmol/L (3.5-5.1); Total Protein 6.2 gm/dl (6.0-8.3)
[2021-10-10] MEDS: ALBUT/IPRATROP 3MG/0.5MG NEB 3 ML VIAL NEB SCH ×2 (07:13→19:46)
[2021-10-10] MEDS: SODIUM CHLOR 7% 4 ML NEB NEB SCH ×2 (07:13→19:46)
[2021-10-10 07:43] LABS: ANC (manual) 5.62 K/uL (1.4-6.5); Lymphocytes % (manual) 10.5 %; Metamyelocytes # (manual) 0.12 K/uL (0-0); Metamyelocytes % (manual) 1.8 %; Monocytes # (manual) 0.23 K/uL (0.11-0.59); Monocytes % (manual) 3.5 %; Neutrophils # (manual) 5.62 K/uL (1.4-6.5); Neutrophils % (manual) 84.2 %; RBC Morphology Unremarkable
[2021-10-10] MEDS ORDERED: CEFEPIME 2,000 MG in SYRINGE 0 ML IV SCH (08:00)
[2021-10-10] MEDS: guaiFENesin 600 MG TABCR PO SCH ×2 (08:48→20:20)
[2021-10-10] MEDS: FINASTERIDE 5 MG TAB PO SCH (08:48)
[2021-10-10] MEDS: NICOTINE 14 MG/24 HR PATCH TD SCH (08:48)
[2021-10-10] MEDS: ENOXAPARIN INJ 40 MG/0.4 ML SYR SQ SCH (08:49)
--- NOTE | 2021-10-10 09:22 | CT Scan Report ---
CT angio chest PE protocol CLINICAL HISTORY: SOB, +dimer TECHNIQUE: Multidetector row helical CT of the chest was performed with angiographic protocol. Romano l and sagittal reformations were obtained. Coronal and sagittal MIPS were obtained from the axial arabella a set and were submitted for review. Automated dose lowering techniques and/or adjustment according to patient size were utilized for this exam. CT DOSE: 412.82 mGy.cm Comparison: None available at the time of this dictation. FINDINGS: Lungs and pleura: Emphysema and scarring are again seen. Multiple foci of groundglass opacities are s een in the lungs. Heart and pericardium: Heart size is normal. No pericardial effusion. Vessels: No evidence of pulmonary embolism. The pulmonary trunk measures 33 mm in diameter. Mediastinum and hayley: Subcentimeter lymph nodes are seen. Chest wall and lower neck: Unremarkable. Abdomen: Partial visualization of hepatic cysts. Bones: Degenerative changes in the thoracic spine. IMPRESSION: Multiple foci of groundglass opacities are favored to represent pneumonia. No pulmonary embolus is se en. Pulmonary hypertension is suggested. ACT 112: Negative or not required by law. Electronically signed by: Anuel Lange M.D. 10/10/2021 9:20 AM
--- NOTE | 2021-10-10 09:32 | XRay Report ---
XR chest 1V portable HISTORY: Dyspnea COMPARISON: CT lung screening 01/12/2021. FINDINGS: No pneumothorax. No pleural effusions. The heart is normal in size. Mild diffuse interstiti al thickening with mild emphysema. Patchy hazy bilateral airspace opacities are noted. IMPRESSION: 1. Emphysema with patchy hazy bilateral airspace opacities. This likely represents a pneumonia. 2. Bilateral hilar enlargement suggestive of hilar lymphadenopathy. ACT 112: Negative or not required by law. Electronically signed by: Gopi Mcclendon M.D. 10/10/2021 9:31 AM
--- NOTE | 2021-10-10 10:09 | Electrocardiogram Report ---
Test Reason : Blood Pressure : / mmHG Vent. Rate : 093 BPM Atrial Rate : 093 BPM P-R Int : 176 ms QRS Dur : 098 ms QT Int : 364 ms P-R-T Axes : 082 077 073 degrees QTc Int : 452 ms Normal sinus rhythm Normal ECG No previous ECGs available Confirmed by Luis Fernando Kay ([id number]) on 10/10/2021 10:09:25 AM Referred By: REFERRED SELF Confirmed By:Luis Fernando Kay
[2021-10-10] MEDS ORDERED: AZITHROMYCIN 250 MG TAB PO ONE (11:36)
[2021-10-10] MEDS ORDERED: DOXYCYCLINE HYCLATE 100 MG in DEXTROSE 5% 100 ML IV SCH (12:00)
[2021-10-10] MEDS ORDERED: PNEUMOCOCCAL POLYSACCHARIDES 25 MCG/0.5 ML VIAL/SYR IM ONE (14:30)
--- NOTE | 2021-10-10 14:49 | Hospitalist Progress Note ---
Date of Service October 10, 2021 Assessment & Plan (1) Acute respiratory failure with hypoxia: Plan: 76 year old male smoker w/ MGUS, htn, HLD, COPD w/ emphysema, and bph who presents w/ dyspnea and low grade temps most likely secondary to community acquired pneumonia. -Likely due to a combination of a mild viral/atypical pneumonia on top of a COPD exacerbation. - New 5L O2 requirement. Titrate to goal of >90%, now 3 liters NC - Lower suspicion for CHF. Check BNP in AM. - Cefepime and doxycycline discontinued converted to oral azithromycin and cefdinir. - Methylpred 40 q8 and duoneb for COPD - Incentive spirometry, flutter valve, Mucinex, hypertonic neb treatments - Blood cultures pending - CTA neg for PE (2) COPD with emphysema: Plan: - see above - consider outpatient PFTs (3) Pneumonia: Plan: - see above - given bilateral infiltrates noted on CTA, considered atypical pneumonia vs viral - viral respiratory panel was negative - check nasal mrsa (4) Hypertension: Plan: - hold home regimen as he is normotensive (5) Dyslipidemia: Plan: - continue home regimen (6) Tobacco use disorder: Plan: - nicotine patch ordered - continue counseling on smoking cessation (7) MGUS (monoclonal gammopathy of unknown significance): Plan: - noted hx. Patient follows hematology. (8) Hypokalemia: Plan: - repleting, follow BMP Plan: FEN/GI: regular diet, minced/moist. NSS 125/hr ppx: Lovenox code: full dispo: med tele. PT/OT ordered. Admission and Anticipated Discharge Date Admission Date: October 10, 2021 Supervising Physician Co-Signing Physician Notes I personally examined the patient and verified all hernandez points of history and exam, discussed case, and agree with decision making with Dr Chaney feeling better than when he came in but not back to baseline and still needing O2. doesn't use maintenance inhaler regularly vitals ntoed nad heent nc at mmm breathing unlabored no accessory muscles good effort skin n orashes no pallor or icterus COPD exac w acute hypoxic respiratory failure due to CAP - zith/rocephin, supportive care. time. improving but want on RA prior to home as long as he weans OK otherwise as above Subjective Patient seen at bedside this morning. Patient reports weeklong history of generalized cold-like symptoms followed with increased shortness of breath for the past 3 days. Reports that he is a smoker currently. Typically gets a cold or viral illness at least once a year. Imaging yesterday suggestive of a mild viral pneumonia. This morning patient seems to be feeling better after receiving breathing treatments as well as oxygen. Patient does not have a baseline oxygen requirement even with his COPD history. At this time he is on 3 L nasal cannula and is comfortable. Has not been able to be titrated down as of yet. Overall feels well, however, would like to go home as soon as possible. No other new complaints at this time Physical Exam Constitutional: WD/WN, vitals as above Eyes: + anicteric sclerae Neck: trachea midline, no thyromegaly Respiratory: normal respiratory effort; no respiratory distress Auscultation: + rhonchi Cardiovascular: RRR, no murmur, no edema Gastrointestinal (Abdomen): normal bowel sounds, soft, nontender, no hepatosplenomegaly Musculoskeletal: Head/Neck/Chest: normocephalic and head atraumatic Skin: no rashes, warm and dry Neurologic: moves all extremities Psychiatric: A+Ox3, euthymic affect Results & Data Results & Data ([facility]) Vital Signs (Past 12 Hours) Vital Signs Temp Pulse Pulse Resp BP Pulse Ox 10/10/21 11:27 36.9 C 69 18 103/65 93 10/10/21 08:19 67 10/10/21 07:14 70 18 94 10/10/21 06:41 36.6 C 67 18 113/66 93 10/10/21 04:48 84 10/10/21 04:12 36.6 C 70 18 120/71 93 10/10/21 03:27 36.6 C 70 18 120/71 93
--- NOTE | 2021-10-10 16:43 | Billing Data ---
Date of Service October 10, 2021 Coding Level of Care Code 24064 Subseq Hosp Care Lvl 3
[2021-10-10] MEDS: ATORVASTATIN 20 MG TAB PO SCH (20:18)
[2021-10-10] MEDS: CEFDINIR 300 MG CAP PO SCH (20:19)
--- NOTE | 2021-10-11 02:59 | Billing Data ---
Date of Service October 11, 2021 Coding Level of Care Code 35020 Initial Inpt Care Lvl 3
[2021-10-11] MEDS: methylPREDNISolone 40 MG in SYRINGE 0 ML IV SCH ×3 (05:15→21:25)
[2021-10-11 05:53] LABS: Hematocrit (blood only) 39.4 % (42-52); Hemoglobin 13.4 g/dL (14.0-18.0); Mean Corpuscular Hemoglobin 31.8 pg (25-34); Mean Corpuscular Volume 93.4 fL (80-100); Mean Platelet Volume 10.1 fL (7.4-10.4); Platelet Count 227 K/uL (130-400); RDW Coefficient of Variation 12.9 % (11.5-14.5); RDW Standard Deviation 44.4 fL (36.4-46.3); Red Blood Count 4.22 M/uL (4.7-6.1); White Blood Count 7.72 K/uL (4.8-10.8)
[2021-10-11 06:14] LABS: BUN Creatinine Ratio 24.6 (10-20); Creatinine Clr Calc Pharmacy 104.6 ml/min; Est GFR (African American) 110.3 ml/min; Est GFR (Non-African American) 95.2 ml/min; Potassium 3.9 mmol/L (3.5-5.1)
[2021-10-11] MEDS: SODIUM CHLOR 7% 4 ML NEB NEB SCH ×2 (07:16→19:21)
[2021-10-11] MEDS: ALBUT/IPRATROP 3MG/0.5MG NEB 3 ML VIAL NEB SCH ×2 (07:33→19:21)
[2021-10-11] MEDS: CEFDINIR 300 MG CAP PO SCH ×2 (08:38→21:23)
[2021-10-11] MEDS: guaiFENesin 600 MG TABCR PO SCH ×2 (08:38→21:23)
[2021-10-11] MEDS: FINASTERIDE 5 MG TAB PO SCH (08:38)
[2021-10-11] MEDS: NICOTINE 14 MG/24 HR PATCH TD SCH (08:38)
[2021-10-11] MEDS: AZITHROMYCIN 250 MG TAB PO SCH (08:38)
[2021-10-11] MEDS: ENOXAPARIN INJ 40 MG/0.4 ML SYR SQ SCH (08:39)
--- NOTE | 2021-10-11 10:05 | Electrocardiogram Report ---
Test Reason : Blood Pressure : / mmHG Vent. Rate : 069 BPM Atrial Rate : 069 BPM P-R Int : 176 ms QRS Dur : 098 ms QT Int : 404 ms P-R-T Axes : 069 083 051 degrees QTc Int : 432 ms Normal sinus rhythm Normal ECG When compared with ECG of 09-OCT-2021 21:24, No significant change was found Confirmed by Luis Fernando Kay ([id number]) on 10/11/2021 10:04:37 AM Referred By: REFERRED SELF Confirmed By:Luis Fernando Kay
[2021-10-11] MEDS ORDERED: ALBUT/IPRATROP 3MG/0.5MG NEB 3 ML VIAL NEB ONE (10:45)
--- NOTE | 2021-10-11 16:08 | Hospitalist Progress Note ---
Date of Service October 11, 2021 Assessment & Plan (1) Acute respiratory failure with hypoxia: Plan: 76 year old male smoker w/ MGUS, htn, HLD, COPD w/ emphysema, and bph who presents w/ dyspnea and low grade temps most likely secondary to community acquired pneumonia. -Likely due to a combination of a mild viral/atypical pneumonia on top of a COPD exacerbation. - New 5L O2 requirement. Titrate to goal of >90%, now 2 liters NC - Lower suspicion for CHF. - Cefepime and doxycycline discontinued converted to oral azithromycin and cefdinir on 10/10. 3 day course of azithro and 7 day course for cefdinir - Methylpred 40 q8 and duoneb for COPD - Incentive spirometry, flutter valve, Mucinex, hypertonic neb treatments - Blood cultures negative after 24 hours - CTA neg for PE (2) COPD with emphysema: Plan: - see above - consider outpatient PFTs (3) Pneumonia: Plan: - see above - given bilateral infiltrates noted on CTA, considered atypical pneumonia vs viral - viral respiratory panel was negative (4) Hypertension: Plan: - hold home regimen as he is normotensive (5) Dyslipidemia: Plan: - continue home regimen (6) Tobacco use disorder: Plan: - nicotine patch ordered - continue counseling on smoking cessation (7) MGUS (monoclonal gammopathy of unknown significance): Plan: - noted hx. Patient follows hematology. (8) Hypokalemia: Plan: - repleting, follow BMP Plan: FEN/GI: regular diet, minced/moist. NSS 125/hr ppx: Lovenox code: full dispo: med tele. PT/OT ordered. Admission and Anticipated Discharge Date Admission Date: October 10, 2021 Supervising Physician Co-Signing Physician Notes I personally examined the patient and verified all hernandez points of history and exam, discussed case, and agree with decision making with Dr Chaney Slowly feeling better, but still on oxygen and does not quite feel up to going home vitals ntoed nad heent nc at mmm breathing unlabored no accessory muscles diffuse wheezing better air entry good effortbetter air entry than yesterday probably accounting for the new wheezing. Neuro without focal deficits COPD exac w acute hypoxic respiratory failure due to CAP - zith/rocephin, suppo rtive care. time. Continues to show slow improvement, wean off oxygen as possible. Home once he is doing a little better (ideally off of oxygen, although we did discuss that a small percentage of people do end up needing oxygen 24/7 temporarily after a COPD exacerbation otherwise as above Subjective Patient seen at bedside this morning. Notes continued improvement in breathing, however, he has not been able to maintain good oxygen saturation without being on oxygen supplementation. Overall feels well just unable to return to his baseline at this time. He is not on oxygen at home. Not having any other symptoms other than some shortness of breath and oxygen desaturation without oxygen supplementation. No new complaints to report at this time does wish to go home but understands that he needs to go when it is appropriate. No other complaints at this time. Review of Systems Review of Systems: All systems reviewed & are unremarkable except as noted in HPI & below Physical Exam Constitutional: WD/WN, vitals as above Eyes: + anicteric sclerae Neck: trachea midline, no thyromegaly Respiratory: normal respiratory effort; no respiratory distress Auscultation: + rhonchi Cardiovascular: RRR, no murmur, no edema Gastrointestinal (Abdomen): normal bowel sounds, soft, nontender, no hepatosplenomegaly Musculoskeletal: Head/Neck/Chest: normocephalic and head atraumatic Skin: no rashes, warm and dry Neurologic: moves all extremities Psychiatric: A+Ox3, euthymic affect Results & Data Results & Data ([facility]) Vital Signs (Past 12 Hours) Vital Signs Temp Pulse Pulse Resp BP Pulse Ox 10/11/21 15:06 36.4 C L 78 18 135/75 96 10/11/21 11:16 70 16 93 10/11/21 11:00 36.7 C 74 14 115/76 93 10/11/21 07:38 63 10/11/21 07:16 78 16 90 10/11/21 07:15 36.7 C 71 16 110/62 96 10/11/21 06:42 36.6 C 63 18 111/65 93
--- NOTE | 2021-10-11 16:20 | Billing Data ---
Date of Service October 11, 2021 Coding Level of Care Code 06300 Subseq Hosp Care Lvl 3
[2021-10-11] MEDS: ATORVASTATIN 20 MG TAB PO SCH (21:23)
[2021-10-12] MEDS: methylPREDNISolone 40 MG in SYRINGE 0 ML IV SCH (06:15)
[2021-10-12 06:17] LABS: Hematocrit (blood only) 39.7 % (42-52); Hemoglobin 13.4 g/dL (14.0-18.0); Mean Corpuscular Hemoglobin 31.6 pg (25-34); Mean Corpuscular Hgb Conc 33.8 g/dL (32-36); Mean Corpuscular Volume 93.6 fL (80-100); Mean Platelet Volume 9.8 fL (7.4-10.4); Platelet Count 248 K/uL (130-400); RDW Standard Deviation 44.7 fL (36.4-46.3); Red Blood Count 4.24 M/uL (4.7-6.1); White Blood Count 8.67 K/uL (4.8-10.8)
[2021-10-12 06:42] LABS: BUN Creatinine Ratio 29.7 (10-20); Calcium 8.9 mg/dl (8.5-10.1); Creatinine Clr Calc Pharmacy 106.2 ml/min; Est GFR (Non-African American) 95.8 ml/min; Potassium 4.4 mmol/L (3.5-5.1)
[2021-10-12] MEDS: ALBUT/IPRATROP 3MG/0.5MG NEB 3 ML VIAL NEB SCH (07:42)
[2021-10-12] MEDS: SODIUM CHLOR 7% 4 ML NEB NEB SCH (07:44)
[2021-10-12] MEDS: ENOXAPARIN INJ 40 MG/0.4 ML SYR SQ SCH (08:28)
[2021-10-12] MEDS: AZITHROMYCIN 250 MG TAB PO SCH (08:28)
[2021-10-12] MEDS: CEFDINIR 300 MG CAP PO SCH (08:28)
[2021-10-12] MEDS: guaiFENesin 600 MG TABCR PO SCH (08:28)
[2021-10-12] MEDS: NICOTINE 14 MG/24 HR PATCH TD SCH (08:28)
[2021-10-12] MEDS: FINASTERIDE 5 MG TAB PO SCH (08:28)
--- NOTE | 2021-10-12 14:02 | Discharge Summary ---
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 He states his symptoms feels like a cold and his last serious respiratory infection was 2 years ago. Temp of 100.3F last night. He has had flu shot and first covid booster. Denies chills, cough. Sputum is white. Smokes 8 cigarettes/day. No sick contact. No diarrhea, loss of taste or smell. + fatigue x 1 week. Decreased appetite and PO intake. He has been prescribed a rescue inhaler, but does not use it routinely. He does not have a automatic operator. Currently, he is feeling a little better and is breathing more comfortably. ED course: 5L O2. Doxycycline IV. NSS 1.5L. Duoneb. Cefepime. Methylpred 125mg. CTA neg for PE and pos for patchy bilateral infiltrates. Principal Diagnosis 30 Discharge Exam Constitutional WD/WN, vitals as above Eyes + anicteric sclerae Neck trachea midline, no thyromegaly Respiratory normal respiratory effort Auscultation: + rhonchi and + wheezes Cardiovascular RRR, no murmur, no edema Gastrointestinal (Abdomen) normal bowel sounds, soft, nontender, no hepatosplenomegaly Musculoskeletal Head/Neck/Chest: normocephalic and head atraumatic Skin no rashes, warm and dry Neurologic moves all extremities Psychiatric A+Ox3, euthymic affect Discharge Data Allergies Allergy/AdvReac Type Severity Reaction Status Date / Time No Known Drug Allergies AdvReac Verified 10/10/21 00:01 Consultations 10/10/21 00:08 ED Decision to Admit Stat Ordered Studies 10/09/21 22:02 CT angio chest PE protocol Urgent Hospital Course (1) Acute respiratory failure with hypoxia: 76 year old male smoker w/ MGUS, htn, HLD, COPD w/ emphysema, and bph who presents w/ dyspnea and low grade temps most likely secondary to community acquired pneumonia. -Likely due to a combination of a mild viral/atypical pneumonia on top of a COPD exacerbation. - New 5L O2 requirement. Titrate to goal of >90%, now on room air. Had a two- step done and was at 94% standing but the oxygen down to 87% while ambulating. Patient will be sent home on a portable oxygen with concentrator with 2 L nasal cannula with ambulation. - Lower suspicion for CHF. - Cefepime and doxycycline discontinued converted to oral azithromycin and cefdinir on 10/10. 3 day course of azithro and 7 day course for cefdinir. Sent prescription for 4 days worth of cefdinir to the pharmacy. Azithromycin course finished in hospital. - Methylpred 40 q8 and duoneb for COPD while in house, sent 40 mg of prednisone daily for 4 days and 20 mg daily for the next 4 days to the pharmacy - Return to home inhaler regimen at discharge, recommend smoking cessation. - Incentive spirometry, flutter valve, Mucinex, hypertonic neb treatments - Blood cultures negative - CTA neg for PE (2) COPD with emphysema: - see above - consider outpatient PFTs (3) Pneumonia: - see above - given bilateral infiltrates noted on CTA, considered atypical pneumonia vs viral - viral respiratory panel was negative (4) Hypertension: - hold home regimen as he is normotensive (5) Dyslipidemia: - continue home regimen (6) Tobacco use disorder: - nicotine patch ordered - continue counseling on smoking cessation (7) MGUS (monoclonal gammopathy of unknown significance): - noted hx. Patient follows hematology. (8) Hypokalemia: - repleting, follow BMP FEN/GI: regular diet, minced/moist. NSS 125/hr ppx: Lovenox code: full dispo: med tele. PT/OT ordered. Total Time Total Time Spent Total Time Spent (In Minutes): 30 Discharge Plan Discharge Items Patient Disposition: Home - Self-Care Reason For Visit: HYPOXIA, PNEUMONIA Discharge Diagnosis: Pneumonia Activity: Resume your previous activity Non-emergency contact: Primary Care Provider Call non-emergency contact if: your symptoms worsen Follow-up/Referrals: Luis Fernando Noreiga DO [Primary Care Provider] - 10/19/21 12:00 pm Diet: Heart Healthy Addtl Attending Provider Instructions: You were hospitalized at [facility] due to an acute worsening of your breathing. You were found to have evidence of a pneumonia on evaluation. You were treated with antibiotics while under our care. Please continue to take Cefdinir 300mg twice daily for an additional 3 days upon discharge. A script for this was sent to your pharmacy. We also started you on steroids due to her concurrent chronic obstructive pulmonary disease. Please take prednisone 40mg daily for 4 days, followed by 20mg daily for 4 days. A script for this was sent to your pharmacy. Because your oxygen level remained low when you were walking, we are going to send you home with portable oxygen. We recommend keeping it on when you are walking around your house. However, it does not need to be kept on if you are sitting and resting or sleeping. We strongly recommend you consider quitting smoking, as tobacco is continuing to cause harm to your lungs and vasculature. Please work with your family doctor on this. A follow up visit was arranged for you with your primary care doctor on 10/19/21. Pending Studies at Discharge: No Stand-Alone Forms: My [facility], Smoking Cessation Medications and DC Order Prescriptions: New cefdinir 300 mg Capsule 300 mg PO BID 3 Days Qty: 6 RF: 0 prednisone 20 mg tablet 20 mg PO DAILY 8 Days Qty: 12 RF: 0 Continued albuterol sulfate [ProAir HFA] 90 mcg/actuation HFA aerosol inhaler 1 puff INH QID PRN (Reason: Shortness Of Breath Or Wheezing) RF: 0 hydrochlorothiazide 25 mg tablet 25 mg PO DAILY Qty: 90 RF: 3 finasteride 5 mg tablet 5 mg PO DAILY Qty: 30 RF: 11 cholecalciferol (vitamin D3) 5,000 unit capsule 5,000 unit PO DAILY RF: 0 multivitamin [Daily Multi-Vitamin] tablet 1 tab PO DAILY RF: 0 atorvastatin 20 mg tablet 20 mg PO QPM RF: 0 calcium 500 mg Tablet 500 mg PO DAILY RF: 0 calcium carbonate 500 mg calcium (1,250 mg) Tablet 500 mg PO DAILY RF: 0 Discharge Orders: Discharge Order (Routine); Ordered 10/12/21 Ordered By: Eddie Ch/Other Patient Handouts: Oxygen Supplemental Admission Data Admit Date/Time: 10/10/21 01:52 Attending Provider: Laci Madsen Admit Provider: Krunal Suero Primary Care Provider: Luis Fernando Noriega Other Providers: Hudson Pierre ; Jassi Rivas Other Interventions: Discharge Summary Assessment (RN) Last Done: 10/12/21 14:05 Supervising Physician Co-Signing Physician Notes I personally examined the patient and verified all hernandez points of history and exam, discussed case, and agree with decision making with Dr Chaney Upon exam, the patient is seated in his hospital bed completing a crossword puzzle. He is without respiratory difficulty on room air. He is able to speak in full and complete sentences. 112/68, 77, 20, 36.5, 90% on room Appears comfortable Lungs with mid to end expiratory wheezing in all [place], good air exchange, suspect near his baseline Heart regular rate and rhythm COPD exac w acute hypoxic respiratory failure due to CAP Two step to determine home oxygen needs Complete antibiotics as noted above Prednisone, 40 mg for four days, then 20 mg for four days Follow up with PCP within next 1-2 weeks
== END 2021-10-12 15:20 | disposition home or self-care (01) | DRG 193 ==
LOC: ED 20:27 → INTOOBSV 10-10 01:52 → 2N 10-10 01:52 → SUATTDRO 10-10 01:52 → 2N 10-10 02:41

== ENCOUNTER 2025-02-07 09:14 | Inpatient (IN) ==
[2025-02-07 09:47] LABS: Hematocrit (blood only) 46.7 % (42.0-52.0); Hemoglobin 16.5 g/dl (14.0-18.0); Immature Granulocytes # (auto) 0.03 K/uL (0.01-0.20); Immature Granulocytes % (auto) 0.3 %; Mean Corpuscular Hemoglobin 30.7 pg (25.0-34.0); Mean Corpuscular Volume 86.8 fL (80.0-100.0); Platelet Count 317 K/uL (130-400); RDW Standard Deviation 42.4 fL (36.4-46.3); Red Blood Count 5.38 M/uL (4.70-6.10); White Blood Count 9.50 K/ul (4.8-10.8)
[2025-02-07 10:04] LABS: Anion Gap 8.0 (3-11); Blood Urea Nitrogen 27.0 mg/dl (6-23); Calcium 10.0 mg/dl (8.6-10.3); Carbon Dioxide 30.0 mmol/L (21-32); Chloride 97.0 mmol/L (98-107); Creatinine Clr Calc Pharmacy 63.5 ml/min; Glucose 113.0 mg/dl (70-99(Fasting)); Potassium 3.9 mmol/L (3.5-5.1); Sodium 135.0 mmol/L (136-145)
--- NOTE | 2025-02-07 10:04 | XRay Report ---
XR chest 1V portable CLINICAL HISTORY: L sided pneumothorax COMPARISON STUDY: 01/24/2025 chest x-ray and PET CT yesterday FINDINGS: There is a large left pneumothorax with 6 cm pleural separation at the left apex. There is complete collapse of the left upper lobe. No pneumothorax on the right. No consolidation or pleural e ffusion. IMPRESSION: Large left pneumothorax with complete collapse of the left upper lobe. ACT 112: Negative or not required by law. Electronically signed by: Ash Barton M.D. 02/07/2025 10:03 AM
[2025-02-07 10:13] LABS: INR 0.9 (0.9-1.1); Prothrombin Time 10.3 Seconds (9.0-12.0)
--- NOTE | 2025-02-07 10:38 | Emergency Department Note ---
History of Present Illness General Chief complaint: Referred by Doctor Stated complaint: REF BY DOC, UPPER PART OF L LUNG COLLAPSED Time Seen by Provider: 02/07/25 09:17 History of Present Illness Patient is a 79-year-old male who presents from outpatient pulmonology clinic for some finding of pneumothorax on PET scan that was performed yesterday. Patient had a biopsy of the left lung performed 2 weeks prior. He is currently asymptomatic. Sent over by his call center assistant for chest tube placement. Home Medications Medication Instructions Recorded Confirmed Type multivitamin (Daily Multi-Vitamin 1 tab PO QPM 12/02/18 02/07/25 History tablet) calcium 500 mg tablet 500 mg PO DAILY 10/09/21 02/07/25 History cholecalciferol (vitamin D3) 125 10,000 unit PO DAILY 06/07/22 02/07/25 History mcg (5,000 unit) capsule Portable Oxygen #1 ea 06/11/22 01/24/25 Rx hydrochlorothiazide 25 mg tablet 25 mg PO QAM #90 tabs 03/07/24 02/07/25 Rx albuterol sulfate 90 mcg/actuation 2 puff inhalation QID PRN 03/12/24 02/07/25 Rx aerosol inhaler Shortness Of Breath Or Wheezing #8.5 grams umeclidinium 62.5 mcg-vilanterol 1 inh inhalation DAILY #60 ea 03/12/24 02/07/25 Rx 25 mcg/actuation powdr for inhalation (Anoro Ellipta) atorvastatin 20 mg tablet 20 mg PO QPM #90 tabs 07/30/24 02/07/25 Rx finasteride 5 mg tablet 5 mg PO QPM 01/16/25 02/07/25 History lisinopril 10 mg tablet 10 mg PO QAM 01/16/25 02/07/25 History Allergies Allergy/AdvReac Type Severity Reaction Status Date / Time No Known Drug Allergies AdvReac Verified 01/24/25 09:11 Past Med/Surg History Problem List (Updated 02/07/25 @ 11:06 by Russ Fofana MD) Pneumothorax after biopsy (Acute) Encounter for pre-operative examination Abnormal chest CT [place] Hearing loss uses hearing aids History of colon polyps Chronic respiratory failure with hypoxia Low back pain Edema, lower extremity Obesity Exertional shortness of breath Left leg swelling Pulmonary nodule COPD with emphysema Left knee pain History of smoking greater than 50 pack years quit 09/2021 Vitamin D deficiency (Acute) Osteoporosis (Acute) MGUS (monoclonal gammopathy of unknown significance) (Acute) Hypertension (Acute) Dyslipidemia (Acute) Benign prostatic hyperplasia (Acute) Medical History Chronic respiratory failure with hypoxia COPD with emphysema History of BPH Hx of osteoporosis MGUS (monoclonal gammopathy of unknown significance) History of hypertension Hx of colonic polyps Exertional shortness of breath Dyslipidemia ETD (eustachian tube dysfunction) Acute prostatitis Mixed hearing loss, bilateral DVT (deep venous thrombosis) Elevated PSA COPD exacerbation On home oxygen therapy Surgical History History of esophagogastroduodenoscopy (EGD) Hx of colonoscopy (2022) Hx of bilateral cataract extraction History of laparoscopic cholecystectomy Family History Brother Myocardial infarction Cancer Sister Breast cancer Pancreatic cancer Father Prostate cancer Denies family history of Ovarian cancer Colorectal cancer Social History Smoking Status: Former smoker Tobacco Type: Cigarettes Age Started Using Tobacco: 16; Age Quit Using Tobacco: 76; packs per day: 1; Cigarettes Per Day: 20-30; Second Hand Exposure: Yes (hx); Do You Dip or Chew Tobacco: No; Hx Alcohol Use: Yes Alcohol type: beer Alcohol Intake Frequency: Monthly or Less Hx Substance Use: No Preferred Language: Czech Communication Ability: Effective Visual Impairment: Limited Hearing Ability: Use of Hearing Aid Freight Brake Operator Required: No Beliefs That Will Affect Care: None marital status: Current Living Situation: Spouse current occupational status: retired How many Children do You have: 2 Feels Safe at Home: Yes Childhood Exposure to Second-Hand Smoke: Yes Diet: regular caffeine: Yes during the past year weight has: remained stable Dental Care, Regularly: Yes Physical Activity Frequency: Daily Seatbelt Use: never Sunscreen Use: Yes (sometimes) Do you think of yourself as: straight/heterosexual Sexual Activity: has been sexually active, but not for at least 12 months Gender Identity: Male Assistive Devices: Glasses and Hearing Aid - Bilateral Review of Systems See HPI for pertinent positives & negatives. Physical Exam Vital Signs Vital Signs - 24 hr 09/11/25 09:21 02/07/25 09:30 02/07/25 09:31 Temperature 36.7 C Temperature Source Temporal Artery Scan Pulse Rate 92 H 85 Pulse Rate [Apical] 78 Respiratory Rate 20 18 Respiratory Effort / Characteristics Spontaneous Short of Breath Short of Breath Respiratory Depth Normal Normal Respiratory Pattern Regular Blood Pressure 125/82 Blood Pressure [Left Arm] 112/77 Blood Pressure Mean 96 Blood Pressure Mean [Left Arm] 88 Blood Pressure Position [Left Arm] Lying Pulse Oximetry 92 93 Oxygen Delivery Method Room Air Room Air Sepsis Recent Fever Within 48 Hours No Sepsis New/Unexplained Change in Mental Status N/A Sepsis Action Taken by Nursing No Action Required 02/07/25 10:06 02/07/25 10:30 Temperature Temperature Source Pulse Rate Pulse Rate [Apical] 79 67 Respiratory Rate 18 18 Respiratory Effort / Characteristics Non-Labored Spontaneous Non-Labored Spontaneous Respiratory Depth Normal Normal Respiratory Pattern Blood Pressure Blood Pressure [Left Arm] 128/88 124/82 Blood Pressure Mean Blood Pressure Mean [Left Arm] 101 96 Blood Pressure Position [Left Arm] Sitting Sitting Pulse Oximetry 92 94 Oxygen Delivery Method Room Air Room Air Sepsis Recent Fever Within 48 Hours Sepsis New/Unexplained Change in Mental Status Sepsis Action Taken by Nursing see below Constitutional WD/WN, vitals as above Respiratory Decreased BS on the left, no accessory muscle use or increased work of breathing noted, no swelling or crepitus noted to the chest wall Cardiovascular RRR, no murmur, no edema Procedures Chest Tube Chest Tube 1: Chest Tube Location: left Size of Tube (cm): 15 Chest Tube Prep: Yes betadine prep and sterile drapes applied Local Anesthetic: lidocaine 1% Amount of anesthesia used (mL): 5 Incision Made With: other Post Procedure: sutured to skin and sterile dressing applied Tube Drainage: none Post Procedure CXR?: Yes Patient Tolerated Procedure: Yes Progress: CT placed to suction. Placement confirmed on CXR. Course Administered Medications Discontinued Medications Lidocaine HCl (Lidocaine 1% Local 20 Ml Vial) Confirm Administered Dose 1 ml .ROUTE .[employer] Stop: 02/07/25 10:02 Last Admin: 02/07/25 10:49 Dose: Not Given Documented By: CC Medical Decision Making Differential Diagnosis Spontaneous pneumothorax, tension pneumothorax, hemothorax, bleb Laboratory Data 02/07/25 09:30 09/11/25 09:30 Lab Results 02/07/25 Range/Units 09:30 WBC 9.50 (4.8-10.8) K/ul RBC 5.38 (4.70-6.10) M/uL Hgb 16.5 (14.0-18.0) g/dl Hct 46.7 (42.0-52.0) % MCV 86.8 (80.0-100.0) fL MCH 30.7 (25.0-34.0) pg MCHC 35.3 (32.0-36.0) g/dL RDW Std Deviation 42.4 (36.4-46.3) fL RDW Coeff of Linda 13.4 (11.5-14.5) % Plt Count 317 (130-400) K/uL MPV 9.4 (9.4-12.4) fL Immature Gran % (Auto) 0.3 % Neut % (Auto) 73.8 % Lymph % (Auto) 17.3 % Nash % (Auto) 5.3 % Eos % (Auto) 2.7 % Baso % (Auto) 0.6 % Neut # (Auto) 7.01 H (1.40-6.50) K/uL Lymph # (Auto) 1.64 (1.20-3.40) K/uL Nash # (Auto) 0.50 (0.11-0.59) K/uL Eos # (Auto) 0.26 (0.00-0.50) K/uL Baso # (Auto) 0.06 (0.00-0.20) K/uL Immature Gran # (Auto) 0.03 (0.01-0.20) K/uL PT 10.3 (9.0-12.0) Seconds INR 0.9 (0.9-1.1) Sodium 135 L (136-145) mmol/L Potassium 3.9 (3.5-5.1) mmol/L Chloride 97 L (98-107) mmol/L Carbon Dioxide 30 (21-32) mmol/L Anion Gap 8 (3-11) BUN 27 H (6-23) mg/dl Creatinine 1.11 (0.6-1.4) mg/dl Est Cr Clr Drug Dosing 63.5 ml/min eGFR 67.97 BUN/Creatinine Ratio 24.3 H (10-20) Glucose 113 H (70-99(Fasting)) mg/dl Calcium 10.0 (8.6-10.3) mg/dl Imaging Data Radiologist's Impression: Chest X-Ray 02/07/25 09:34 XR chest 1V portable CLINICAL HISTORY: L sided pneumothorax COMPARISON STUDY: 01/24/2025 chest x-ray and PET CT yesterday FINDINGS: There is a large left pneumothorax with 6 cm pleural separation at the left apex. There is complete collapse of the left upper lobe. No pneumothorax on the right. No consolidation or pleural effusion. IMPRESSION: Large left pneumothorax with complete collapse of the left upper lobe. ACT 112: Negative or not required by law. Electronically signed by: Ash Barton M.D. 02/07/2025 10:03 AM Chest X-Ray 02/07/25 10:32 XR chest 1V portable CLINICAL HISTORY: Confirm pigtil placement COMPARISON STUDY: 02/07/2025 FINDINGS: There is an interval left pigtail pleural catheter. There is a small residual left pneumothorax, significantly improved. There is mild atelectasis at the left lung base. No other consolidation or pleural effusion seen. IMPRESSION: Small residual left pneumothorax, significantly improved. ACT 112: Negative or not required by law. Electronically signed by: Ash Barton M.D. 02/07/2025 10:46 AM MDM Narrative Patient is a 79-year-old male who presents for incidental finding of large left pneumothorax on outpatient PET scan yesterday. He is hemodynamically stable on arrival. Saturating 93% on room air. Dr. Small with pulmonology did contact us here in the ER to recommend chest tube placement and touching base with service on-call today. I spoke with Dr. Sullivan with critical care who recommends placement of pigtail catheter and admission to hospitalist service. He will consult on patient for chest tube management. See procedure note above for documentation of chest tube placement. Follow-up chest x-ray confirmed adequate placement and reexpansion of the lung. Stable for admission to hospitalist service under telemetry bed. Impression & Plan Pneumothorax after biopsy Discharge Plan Visit Data Chief Complaint: Referred by Doctor Stated Complaint: REF BY DOC, UPPER PART OF L LUNG COLLAPSED ED Provider: Russ Fofana Discharge Problem: Pneumothorax after biopsy Patient Disposition: Admitted As Inpatient Condition: Good Forms Stand Alone Forms: [place] Prescriptions Prescriptions: No Action hydrochlorothiazide 25 mg tablet 25 mg PO QAM Qty: 90 3RF Patient Comments: atorvastatin 20 mg tablet 20 mg PO QPM Qty: 90 3RF (DME) Portable Oxygen Misc See Rx Instructions .MEDSUPPLY Qty: 1 0RF Rx Instructions: Oxygen 2 liters continuous via nasal cannula on exertion with portable concentrator. ELAYNE 99 multivitamin [Daily Multi-Vitamin] tablet 1 tab PO QPM cholecalciferol (vitamin D3) 125 mcg (5,000 unit) capsule 10,000 unit PO DAILY albuterol sulfate 90 mcg/actuation HFA aerosol inhaler 2 puff INH QID PRN (Reason: Shortness Of Breath Or Wheezing) Qty: 8.5 3RF Anoro Ellipta 62.5-25 mcg/actuation blister with device 1 inh inhalation DAILY Qty: 60 12RF Patient Comments: does not use every day, maybe uses 20 times per month calcium 500 mg Tablet 500 mg PO DAILY lisinopril 10 mg tablet 10 mg PO QAM finasteride 5 mg tablet 5 mg PO QPM Referrals Referrals: Luis Fernando Noriega DO [Primary Care Provider] -
--- NOTE | 2025-02-07 10:47 | XRay Report ---
XR chest 1V portable CLINICAL HISTORY: Confirm pigtil placement COMPARISON STUDY: 02/07/2025 FINDINGS: There is an interval left pigtail pleural catheter. There is a small residual left pneumoth orax, significantly improved. There is mild atelectasis at the left lung base. No other consolidation or pleural effusion seen. IMPRESSION: Small residual left pneumothorax, significantly improved. ACT 112: Negative or not required by law. Electronically signed by: Ash Barton M.D. 02/07/2025 10:46 AM
[2025-02-07] MEDS: LIDOCAINE 1% LOCAL 20 ML VIAL ONE (10:49)
--- NOTE | 2025-02-07 11:22 | History & Physical Report ---
Date of Service February 07, 2025 Assessment & Plan (1) Pneumothorax after biopsy: Plan: Assessment: 1. Left lung pneumothorax. This is status post biopsy 2 weeks ago found incidentally on a PET CT scan yesterday. The patient was relatively asymptomatic from this standpoint. Set chest tube successfully placed in the left chest wall. With good results. Pulmonology consulted for chest tube management. Pulmonology notified by the ER attending. We have ordered continuous pulse ox. 2. Left upper lobe lesion. Per the patient The biopsy was negative for malignancy. 3. Mild hyponatremia: 135. Recheck in the a.m. 4. BPH with what appears to be a chronically mildly elevated PSA. To be followed as an outpatient per standard of care. 5. COPD. No acute exacerbation currently. 6. Ex-tobacco abuse quit smoking approximately 3 years ago has approximately 70-phpi-tbwc history prior to that. 7. History of hypertension. Continue home medications as appropriate. 8. Dyslipidemia. Continue home medications as appropriate. 9. 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 Plan: As described above. Continue chest tube to suction per pulmonology and management of chest tube per pulmonology. Continuous pulse ox. Will advance the patient's diet. Anticipate the patient needing a longer stay greater than 2 days. This was discussed with the patient and he voiced understanding all of his questions were answered to his satisfaction. We will recheck a.m. labs. Please refer to orders for further planning. History of Present Illness Chief Complaint: left-sided pneumothorax Primary Care Provider: Luis Fernando Noriega, this is a pleasant 79-year-old male who had is a left upper lung nodule. He underwent biopsy approximately 2 weeks ago. Yesterday he had a follow-up PET CT scan. He was contacted today by his pacu nurse to report to the ER due to the fact that the PET/CT demonstrated a large left upper lobe pneumothorax. Upon presentation to the ER The patient's vital signs were stable including a pulse ox of in the low 90s on room air. He was not tachypneic nor tachycardic and he was normotensive. Laboratory studies obtained in the ER were unremarkable mildly low sodium at 135. Informed consent was obtained and a chest tube was placed in the left upper ches t wall Resulting in good results of lung expansion per the ER provider. ER provider did reach out to pulmonology on-call who will see the patient for chest tube management-Dr. Blakely Allergies Allergy/AdvReac Type Severity Reaction Status Date / Time No Known Drug Allergies AdvReac Verified 01/24/25 09:11 Home Medications Medication Instructions Recorded Confirmed Type multivitamin (Daily Multi-Vitamin 1 tab PO QPM 12/02/18 02/07/25 History tablet) calcium 500 mg tablet 500 mg PO DAILY 10/09/21 02/07/25 History cholecalciferol (vitamin D3) 125 10,000 unit PO DAILY 06/07/22 02/07/25 History mcg (5,000 unit) capsule Portable Oxygen #1 ea 06/11/22 01/24/25 Rx hydrochlorothiazide 25 mg tablet 25 mg PO QAM #90 tabs 03/07/24 02/07/25 Rx albuterol sulfate 90 mcg/actuation 2 puff inhalation QID PRN 03/12/24 02/07/25 Rx aerosol inhaler Shortness Of Breath Or Wheezing #8.5 grams umeclidinium 62.5 mcg-vilanterol 1 inh inhalation DAILY #60 ea 03/12/24 02/07/25 Rx 25 mcg/actuation powdr for inhalation (Anoro Ellipta) atorvastatin 20 mg tablet 20 mg PO QPM #90 tabs 07/30/24 02/07/25 Rx finasteride 5 mg tablet 5 mg PO QPM 01/16/25 02/07/25 History lisinopril 10 mg tablet 10 mg PO QAM 01/16/25 02/07/25 History Past Med/Surg History Problem List (Updated 02/07/25 @ 11:06 by Russ Fofana MD) Pneumothorax after biopsy (Acute) Encounter for pre-operative examination Abnormal chest CT [place] Hearing loss uses hearing aids History of colon polyps Chronic respiratory failure with hypoxia Low back pain Edema, lower extremity Obesity Exertional shortness of breath Left leg swelling Pulmonary nodule COPD with emphysema Left knee pain History of smoking greater than 50 pack years quit 09/2021 Vitamin D deficiency (Acute) Osteoporosis (Acute) MGUS (monoclonal gammopathy of unknown significance) (Acute) Hypertension (Acute) Dyslipidemia (Acute) Benign prostatic hyperplasia (Acute) Medical History Chronic respiratory failure with hypoxia COPD with emphysema History of BPH Hx of osteoporosis MGUS (monoclonal gammopathy of unknown significance) History of hypertension Hx of colonic polyps Exertional shortness of breath Dyslipidemia ETD (eustachian tube dysfunction) Acute prostatitis Mixed hearing loss, bilateral DVT (deep venous thrombosis) Elevated PSA COPD exacerbation On home oxygen therapy Surgical History History of esophagogastroduodenoscopy (EGD) Hx of colonoscopy (2022) Hx of bilateral cataract extraction History of laparoscopic cholecystectomy Family History Brother Myocardial infarction Cancer Sister Breast cancer Pancreatic cancer Father Prostate cancer Denies family history of Ovarian cancer Colorectal cancer Social History Smoking Status: Former smoker Tobacco Type: Cigarettes Age Started Using Tobacco: 16; Age Quit Using Tobacco: 76; packs per day: 1; Cigarettes Per Day: 20-30; Second Hand Exposure: Yes (hx); Do You Dip or Chew Tobacco: No; Hx Alcohol Use: Yes Alcohol type: beer Alcohol Intake Frequency: Monthly or Less Hx Substance Use: No Preferred Language: Estonian Communication Ability: Effective Visual Impairment: Limited Hearing Ability: Use of Hearing Aid Traffic Law Attorney Required: No Beliefs That Will Affect Care: None marital status: Current Living Situation: Spouse current occupational status: retired How many Children do You have: 2 Feels Safe at Home: Yes Childhood Exposure to Second-Hand Smoke: Yes Diet: regular caffeine: Yes during the past year weight has: remained stable Dental Care, Regularly: Yes Physical Activity Frequency: Daily Seatbelt Use: never Sunscreen Use: Yes (sometimes) Do you think of yourself as: straight/heterosexual Sexual Activity: has been sexually active, but not for at least 12 months Gender Identity: Male Assistive Devices: Glasses and Hearing Aid - Bilateral Review of Systems Review of Systems: A 10 point review of system was obtained and unless otherwise stated here or in history of present illness are negative and noncontributory to chief complaint. Physical Exam Physical Exam: In General: very pleasant 79-year-old male who is alert and oriented x 3 at the time of my exam. He is in no acute distress. He interacts appropriately and pleasantly. 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 HEENT: Normocephalic atraumatic pupils are equal round and reactive to light bilaterally. No scleral icterus no conjunctival injection external auditory canals are patent septum is in the midline nose is without discharge oral mucosa is pink and moist without lesion. NECK: Supple no rigidity no lymphadenopathy no thyromegaly no carotid bruits no JVD no masses. HEART: Regular rate and rhythm I do not appreciate any ectopy or rub. No murmur. LUNGS: globally diminished, left lung more so diminished than right lung however chest tube in good position in the left chest wall. No adventitious sounds. ABDOMEN: Soft nontender, no rebound, no peritoneal signs, positive bowel sounds, no appreciable organomegaly. EXTREMITIES: Intact, no peripheral cyanosis, clubbing or edema. Strength is 5 out of 5 in extremities x4. NEUROLOGICAL: Cranial nerves II through XII are grossly intact with no focal deficit elicited upon examination. Results & Data Results & Data Vital Signs (Past 12 Hours) Vital Signs Temp Pulse Pulse Resp BP BP Pulse Ox 02/07/25 11:06 109/67 02/07/25 11:03 70 18 93/64 L 91 02/07/25 10:30 67 18 124/82 94 02/07/25 10:06 79 18 128/88 92 02/07/25 09:31 85 02/07/25 09:30 78 18 112/77 93 02/07/25 09:21 36.7 C 92 H 20 125/82 92 O2 Del Method 02/07/25 11:06 02/07/25 11:03 Room Air 02/07/25 10:30 Room Air 02/07/25 10:06 Room Air 02/07/25 09:31 02/07/25 09:30 Room Air 02/07/25 09:21 Room Air Code Status & VTE Plan Code Status Full code-I personally discussed with patient at the bedside. He would not want any extended life support/ventilatory support with but would be fine with transient ventilator support if there was a reasonable chance of returning to baseline health status VTE Prophylaxis Plan VTE Prophylaxis will be ordered: Yes PG Care Time/CCT Total # of Minutes Spent Total Time Spent with Patient: Total time spent is greater than 50% in coordination of care (as documented) at patient's floor/unit and/or counseling patient: Coding Level of Care Code 00985 INT INP/OBS CARE Diagnoses Pneumothorax after biopsy J95.811
[2025-02-07] MEDS ORDERED: ALBUTEROL HFA 8 GM INHALER INH PRN (13:49)
--- NOTE | 2025-02-07 13:57 | Pulmonary Consultation ---
Date of Consultation February 07, 2025 Assessment & Plan (1) Pneumothorax after biopsy: Patient is status post robotic bronchoscopy 01/24/2025 with biopsies of a spiculated 1.3 cm left upper lobe nodule abutting the fissure. PET scan 02/06/2025 revealed a large left-sided pneumothorax. Pigtail catheter placed urgently in the ER by the ER doctor 02/07/2025. Subsequent x-ray demonstrates a trace pneumothorax. No continuous airleak noted at -20 cm of water. Intermittent airleak noted at -40 cm of water which resolved after a few seconds. Suction turned down to -10 cm of water. Will repeat a chest x-ray tomorrow and likely trial clamping tomorrow. If he does well with clamping trials, then we will remove the catheter and recommend discharge home. (2) Pulmonary nodule: Unfortunately, bronchoscopic biopsy was nondiagnostic. Patient will likely require repeat bronchoscopy versus empiric therapy with radiation versus a surgical biopsy with possible lobectomy. He is a borderline candidate for lobectomy given his PFTs. He would likely need cardiopulmonary stress test manuel or to any surgery. Patient would benefit from tumor board discussion. Will defer to his primary sack lifter. History of Present Illness Reason for Consultation: Pneumothorax Attending Physician: Tyrel Roach, PhD, DO History of Present Illness 79-year-old male who presented to the hospital after worsening shortness of breath since bronchoscopy 01/24/2025 and PET scan demonstrating incidental large left-sided pneumothorax. Small bore pigtail catheter placed in the ER with near resolution of pneumothorax. Patient feeling better at this time. He has a history of COPD and extensive tobacco abuse history. He smoked since the age of 16 up until 3 years ago about 1 pack/day. He has a left upper lobe nodule measuring 1.3 cm which was PET avid and increasing in size. He underwent a robotic navigational bronchoscopy 01/24/2025 which unfortunate was nondiagnostic. Previous PFTs revealed a moderate airflow obstruction with an FEV1 of 60% and a reduced DLCO 55%. Patient also notably with a history of chronic hypoxemia requiring 2 L of oxygen on exertion based on prior outpatient pulmonary note 01/11/2025. At this time he denies any significant shortness of breath. He has some mild pain in his shoulder and around the incision site of the pigtail catheter. This chest tube is hooked up to -20 cm of water at present time. I briefly increase it to -40 cm of water and did note a small airleak which subsided. I then decreased it to -10 cm water. Allergies Allergy/AdvReac Type Severity Reaction Status Date / Time No Known Drug Allergies AdvReac Verified 01/24/25 09:11 Home Medications Medication Instructions Recorded Confirmed Type multivitamin (Daily Multi-Vitamin 1 tab PO QPM 12/02/18 02/07/25 History tablet) calcium 500 mg tablet 500 mg PO DAILY 10/09/21 02/07/25 History cholecalciferol (vitamin D3) 125 10,000 unit PO DAILY 06/07/22 02/07/25 History mcg (5,000 unit) capsule Portable Oxygen #1 ea 06/11/22 01/24/25 Rx hydrochlorothiazide 25 mg tablet 25 mg PO QAM #90 tabs 03/07/24 02/07/25 Rx albuterol sulfate 90 mcg/actuation 2 puff inhalation QID PRN 03/12/24 02/07/25 Rx aerosol inhaler Shortness Of Breath Or Wheezing #8.5 grams umeclidinium 62.5 mcg-vilanterol 1 inh inhalation DAILY #60 ea 03/12/24 02/07/25 Rx 25 mcg/actuation powdr for inhalation (Anoro Ellipta) atorvastatin 20 mg tablet 20 mg PO QPM #90 tabs 07/30/24 02/07/25 Rx finasteride 5 mg tablet 5 mg PO QPM 01/16/25 02/07/25 History lisinopril 10 mg tablet 10 mg PO QAM 01/16/25 02/07/25 History Patient History Medical History Chronic respiratory failure with hypoxia COPD with emphysema History of BPH Hx of osteoporosis MGUS (monoclonal gammopathy of unknown significance) History of hypertension Hx of colonic polyps Exertional shortness of breath Dyslipidemia ETD (eustachian tube dysfunction) Acute prostatitis Mixed hearing loss, bilateral DVT (deep venous thrombosis) Elevated PSA COPD exacerbation On home oxygen therapy Surgical History History of esophagogastroduodenoscopy (EGD) Hx of colonoscopy (2022) Hx of bilateral cataract extraction History of laparoscopic cholecystectomy Family History Brother Myocardial infarction Cancer Sister Breast cancer Pancreatic cancer Father Prostate cancer Denies family history of Ovarian cancer Colorectal cancer Social History Smoking Status: Former smoker Tobacco Type: Cigarettes Age Started Using Tobacco: 16; Age Quit Using Tobacco: 76; packs per day: 1; Cigarettes Per Day: 20-30; Second Hand Exposure: Yes (hx); Do You Dip or Chew Tobacco: No; Hx Alcohol Use: Yes Alcohol type: beer Alcohol Intake Frequency: Monthly or Less Hx Substance Use: No Preferred Language: Yoruba Communication Ability: Effective Visual Impairment: Limited Hearing Ability: Use of Hearing Aid Academy Director Required: No Beliefs That Will Affect Care: None marital status: Current Living Situation: Spouse current occupational status: retired How many Children do You have: 2 Feels Safe at Home: Yes Childhood Exposure to Second-Hand Smoke: Yes Diet: regular caffeine: Yes during the past year weight has: remained stable Dental Care, Regularly: Yes Physical Activity Frequency: Daily Seatbelt Use: never Sunscreen Use: Yes (sometimes) Do you think of yourself as: straight/heterosexual Sexual Activity: has been sexually active, but not for at least 12 months Gender Identity: Male Assistive Devices: Glasses and Hearing Aid - Bilateral Review of Systems Review of Systems: All systems reviewed & are unremarkable except as noted in HPI & below Physical Exam Physical Exam: Constitutional: Patient appears to be of their stated age. Patient is in no apparent distress. Patient is well-developed. Eyes: Pupils are equal round and reactive to light. Conjunctivae are normal. Anicteric sclera. Ears nose, mouth and throat: Deferred. Neck: Trachea is midline. Visual inspection is normal. Respiratory: Prolonged phase of exhalation. No wheeze. No crackles. Left- sided chest tube in place. Cardiovascular: Regular rate and rhythm. No murmurs. No edema. Gastrointestinal: Normal bowel sounds, soft, nontender and nondistended. No hepatosplenomegaly noted. Musculoskeletal: No cyanosis. Patient is able to move all extremities. Strength is 5 out of 5 in the upper and lower extremities. Skin: No rashes, warm dry and intact. Neurologic: No obvious focal neurological deficits seen. Psychiatric: Alert and oriented x3 with a euthymic affect. Results & Data Results & Data Vital Signs (Past 12 Hours) Vital Signs Temp Pulse Pulse Resp BP BP Pulse Ox 02/07/25 13:25 66 14 117/71 93 02/07/25 12:19 67 16 102/62 92 02/07/25 12:19 67 16 92 02/07/25 11:06 109/67 02/07/25 11:03 70 18 93/64 L 91 02/07/25 10:30 67 18 124/82 94 02/07/25 10:06 79 18 128/88 92 02/07/25 09:31 85 02/07/25 09:30 78 18 112/77 93 02/07/25 09:21 36.7 C 92 H 20 125/82 92 O2 Del Method 02/07/25 13:25 Room Air 02/07/25 12:19 Room Air 02/07/25 12:19 Room Air 02/07/25 11:06 02/07/25 11:03 Room Air 02/07/25 10:30 Room Air 02/07/25 10:06 Room Air 02/07/25 09:31 02/07/25 09:30 Room Air 02/07/25 09:21 Room Air PG Care Time/CCT Total # of Minutes Spent Total Time Spent with Patient: Total time spent is greater than 50% in coordination of care (as documented) at patient's floor/unit and/or counseling patient: Coding Level of Care Code 93188 INT INP/OBS CARE 2/55MIN Diagnoses Pneumothorax after biopsy J95.811 Pulmonary nodule R91.1
[2025-02-07] MEDS: ATORVASTATIN 20 MG TAB PO SCH (21:20)
[2025-02-07] MEDS: FINASTERIDE 5 MG TAB PO SCH (21:20)
[2025-02-07] MEDS: ACETAMINOPHEN 325 MG TAB PO PRN (21:24)
[2025-02-08 06:42] LABS: Hematocrit (blood only) 39.8 % (42.0-52.0); Hemoglobin 14.1 g/dl (14.0-18.0); Immature Granulocytes # (auto) 0.01 K/uL (0.01-0.20); Immature Granulocytes % (auto) 0.1 %; Mean Corpuscular Hemoglobin 30.7 pg (25.0-34.0); Mean Corpuscular Volume 86.7 fL (80.0-100.0); Platelet Count 240 K/uL (130-400); RDW Standard Deviation 42.9 fL (36.4-46.3); Red Blood Count 4.59 M/uL (4.70-6.10); White Blood Count 7.72 K/ul (4.8-10.8)
[2025-02-08 07:06] LABS: Alanine Aminotransferase 14.0 U/L (7-52); Albumin Globulin Ratio 1.7 (0.9-2); Alkaline Phosphatase 97.0 U/L (34-104); Anion Gap 7.0 (3-11); Bilirubin,Total 1.0 mg/dl (0.2-1.0); Blood Urea Nitrogen 21.0 mg/dl (6-23); Calcium 8.8 mg/dl (8.6-10.3); Carbon Dioxide 28.0 mmol/L (21-32); Chloride 100.0 mmol/L (98-107); Cholesterol 108.0 mg/dl (0-200); Creatinine Clr Calc Pharmacy 85.9 ml/min; Globulin 2.2 gm/dl (2.5-4.0); Glucose 102.0 mg/dl (70-99(Fasting)); HDL Cholesterol 41.0 mg/dl; Potassium 3.5 mmol/L (3.5-5.1); Sodium 135.0 mmol/L (136-145); Total Protein 5.9 gm/dl (6.0-8.3); Triglycerides 174.0 mg/dl (0-150)
[2025-02-08 07:20] LABS: Thyroid Stimulating Hormone 1.611 uIu/ml (0.300-4.500)
--- NOTE | 2025-02-08 08:15 | XRay Report ---
EXAM: XR chest 1V portable CLINICAL HISTORY: Pneumothorax TECHNIQUE: An X-ray image of the chest is obtained in AP projection. COMPARISON: Prior chest xray dated 01/24/2025. FINDINGS: Pulmonary Parenchyma: Hyperinflated both lungs (Unchanged). Mild pulmonary congestion (Unchanged). Right basal atelectatic bands (Unchanged). Newly placed left pigtail catheter with its distal tip is seen in the left middle lung zone. No evidence of consolidation, collapse, or focal opacities. No pulmonary nodules are identified. No evidence of pleural effusion or pleural thickening. Heart and Mediastinum: Heart size and shape are normal. No mediastinal widening or masses. No hilar or mediastinal lymphadenopathy. Atheromatous calcifications of the arch of the aorta (Unchanged). Bony Thorax: Bony thorax appears intact without fractures or deformities. Degenerative changes of both acromioclavicular joints (Unchanged). Soft Tissues: EKG leads overlying the chest wall. Soft tissues overlying the chest wall are unremarkable. IMPRESSION: 1. No acute cardiopulmonary abnormalities are identified. 2. Newly placed left-sided pigtail catheter as described. 3. No other gross interval changes were noted in comparison to the previous study. Electronically signed by Tom Keen 02-08-2025 08:15 AM
[2025-02-08] MEDS: hydroCHLOROthiazide 25 MG TAB PO SCH (08:35)
[2025-02-08] MEDS: CHOLECALCIFEROL 125 MCG (5,000 UNITS) TAB PO SCH (08:36)
[2025-02-08] MEDS: CALCIUM CARBONATE 1250MG TAB PO SCH (08:36)
[2025-02-08] MEDS: UMECLIDINIUM/VILANTEROL 62.5/25MCG 7 PUFFS/INHALER INH SCH (08:37)
[2025-02-08] MEDS ORDERED: CHOLECALCIFEROL 125 MCG (5,000 UNITS) TAB PO SCH (09:00)
--- NOTE | 2025-02-08 10:13 | Pulmonology Progress Note ---
Date of Service February 08, 2025 Assessment & Plan (1) Pneumothorax after biopsy: Plan: Patient is status post robotic bronchoscopy 01/24/2025 with biopsies of a spiculated 1.3 cm left upper lobe nodule abutting the fissure. PET scan 02/06/2025 revealed a large left-sided pneumothorax. Pigtail catheter placed urgently in the ER by the ER doctor 02/07/2025. X-ray today without evidence of residual pneumothorax. Chest tube clamped at 9 AM. Will repeat a chest x-ray at noon and if no evidence of recurrent pneumothorax, will remove drain. Patient can be discharged home once drain is removed. (2) Pulmonary nodule: Plan: Unfortunately, bronchoscopic biopsy was nondiagnostic. Patient will likely require repeat bronchoscopy versus empiric therapy with radiation versus a surgical biopsy with possible lobectomy. He is a borderline candidate for lobectomy given his PFTs. He would likely need cardiopulmonary stress test prior to any surgery. Patient would benefit from tumor board discussion. Will defer to his primary director of head start. Admission and Anticipated Discharge Date Admission Date: February 07, 2025 Subjective Chest pain improved today. Patient denies dyspnea. Requiring low-flow oxygen. No airleak noted in [place]. Chest x-ray reviewed without evidence of pneumothorax. Pigtail catheter in place. Review of Systems Review of Systems: All systems reviewed & are unremarkable except as noted in HPI & below Physical Exam Physical Exam: Constitutional: Patient appears to be of their stated age. Patient is in no apparent distress. Patient is well-developed. Eyes: Pupils are equal round and reactive to light. Conjunctivae are normal. Anicteric sclera. Ears nose, mouth and throat: Deferred. Neck: Trachea is midline. Visual inspection is normal. Respiratory: Prolonged phase of exhalation. No wheeze. No crackles. Left- sided chest tube in place. Cardiovascular: Regular rate and rhythm. No murmurs. No edema. Gastrointestinal: Normal bowel sounds, soft, nontender and nondistended. No hepatosplenomegaly noted. Musculoskeletal: No cyanosis. Patient is able to move all extremities. Strength is 5 out of 5 in the upper and lower extremities. Skin: No rashes, warm dry and intact. Neurologic: No obvious focal neurological deficits seen. Psychiatric: Alert and oriented x3 with a euthymic affect. Results & Data Results & Data Vital Signs (Past 12 Hours) Vital Signs Temp Pulse Pulse Resp BP Pulse Ox O2 Del Method 02/08/25 07:10 36.4 C L 58 L 16 119/73 97 Nasal Cannula 02/08/25 04:55 57 L 20 109/79 95 Nasal Cannula 02/07/25 23:53 63 02/07/25 22:49 36.5 C 57 L 18 99/65 L 95 Nasal Cannula O2 Flow Rate 02/08/25 07:10 1 02/08/25 04:55 1.5 02/07/25 23:53 02/07/25 22:49 1 PG Care Time/CCT Total # of Minutes Spent Total Time Spent with Patient: Total time spent is greater than 50% in coordination of care (as documented) at patient's floor/unit and/or counseling patient: Coding Level of Care Code 50322 SUB INP/OBS CARE 2/35MIN Diagnoses Pneumothorax after biopsy J95.811 Pulmonary nodule R91.1
[2025-02-08 11:06] VITALS: BP 108/73; RESP 14; TEMP 97.7; O2SAT 93
--- NOTE | 2025-02-08 12:57 | XRay Report ---
XR chest 1V portable CLINICAL HISTORY: clamping chest tube COMPARISON STUDY: 02/08/2025 FINDINGS: Stable left pigtail pleural catheter. No pneumothorax seen. No consolidation or pleural eff usion. IMPRESSION: No pneumothorax seen. ACT 112: Negative or not required by law. Electronically signed by: Ash Barton M.D. 02/08/2025 12:56 PM
--- NOTE | 2025-02-08 14:19 | Procedure Note ---
Procedure Note Date of Service February 08, 2025 Pigtail catheter removed with patient's permission at 2:15 PM. Occlusive dressing placed over the site. Catheter appears to be intact. No complications. Patient stable for discharge home. [facility] [place] Procedure Codes (Charges) Pulmonary/Thoracic Procedure 1: Pulmonary and Thoracic: 36103 Remove lung catheter Coding CPT Codes Pulmonary/Thoracic - Pulmonary and Thoracic: 25355 Remove lung catheter ([id number]) Additional Codes Date of Service (PG.SURGERY)
[2025-02-08 16:05] VITALS: PULSE 62
--- NOTE | 2025-02-08 17:47 | Discharge Summary ---
Discharge Summary Date of Service February 08, 2025 Principal Dx & Hospital Course #1 = Principal Diagnosis (1) Pneumothorax after biopsy: Assessment: 1. Left lung pneumothorax. Of note, patient underwent biopsy of a 1.3 cm spiculated FRANCHESCA nodule (01/24/2025) with [facility] Dr. Real Roberto; subsequently, left lung pneumothorax was found incidentally on a PET CT scan (02/06/2025, 12:30pm). The patient was relatively asymptomatic from this standpoint. Subsequently, portable CXR (02/07/2025, 9:34am) revealed "large left pneumothorax with 6 cm pleural separation at the left apex. There is complete collapse of the left upper lobe. No pneumothorax on the right. No consolidation or pleural effusion." Subsequently, chest tube was successfully placed in the left chest wall in [facility] ER on 02/07/2025. Subsequently, repeat CXR (02/08/2025, 12:00pm) revealed "stable left pigtail pleural catheter. No pneumothorax seen. No consolidation or pleural effusion." Subsequently, PULMONOLOGY Service of Dr. Rito Blakely removed left pigtail pleural catheter on 02/08/2025, and recommended that patient be discharged back to her home today, 02/08/2025. Subsequently, patient was discharged back to her home on 02/08/2025. 2. Biopsy of a 1.3 cm spiculated FRANCHESCA nodule (01/24/2025): fibrosis and chronic inflammation (as per [facility] Pathologist Dr. Renetta Aguilar). Observe. 3. Acute hypovolemic hyponatremia with admission Na 135 mmol/L (02/07/2025, 9:30am) and discharge Na 135 mmol/L (02/08/2025, 5:52am) Asymptomatic. Observe. 4. BPH with what appears to be a chronically mildly elevated PSA. To be followed as an outpatient per standard of care. 5. COPD. No acute exacerbation currently. 6. Ex-tobacco abuse quit smoking approximately 3 years ago has approximately [id number] history prior to that. 7. History of hypertension. Continue home medications as appropriate. 8. Dyslipidemia. Continue home medications as appropriate. 9. 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 Plan: As described above. Continue chest tube to suction per pulmonology and management of chest tube per pulmonology. Continuous pulse ox. Will advance the patient's diet. Anticipate the patient needing a longer stay greater than 2 days. This was discussed with the patient and he voiced understanding all of his questions were answered to his satisfaction. We will recheck a.m. labs. Please refer to orders for further planning. Admission HPI Per Admitting Provider this is a pleasant 79-year-old male who had is a left upper lung nodule. He underwent biopsy approximately 2 weeks ago. Yesterday he had a follow-up PET CT scan. He was contacted today by his infantry assaultman to report to the ER due to the fact that the PET/CT demonstrated a large left upper lobe pneumothorax. Upon presentation to the ER The patient's vital signs were stable including a pulse ox of in the low 90s on room air. He was not tachypneic nor tachycardic and he was normotensive. Laboratory studies obtained in the ER were unremarkable mildly low sodium at 135. Informed consent was obtained and a chest tube was placed in the left upper chest wall Resulting in good results of lung expansion per the ER provider. ER provider did reach out to pulmonology on-call who will see the patient for chest tube management-Dr. Blakely Discharge Exam Constitutional General: Comfortable, cooperative, coherent. Wide awake and alert. Not confused, lethargic, or obtunded. Patient speaks in complete, fluent, and articulate sentences without pause, interruption, cough, or wheeze. HEENT: Normocephalic, atraumatic. Extra-ocular muscles intact. Pupils equally round and reactive to light. No nystagmus, gaze paresis, anisocoria, miosis, mydriasis, hyphema, chemosis, scleral injection, conjunctivitis, or pterygium. No otorrhea or rhinorrhea. No pharyngeal discharge or exudate. Neck: Supple, no stridor or bruit. Jugular venous pressure is estimated to be 3 cm above the sternal angle of Albino, which is, by definition, 5 cm above the level of the right atrium. Hence, jugular venous pressure of 8 cm is not elevated on discharge date 02/08/2025. Lymphatics: No anterior/posterior cervical, infraclavicular, supraclavicular, axillary, epitrochlear, or inguinal adenopathy. Chest: Symmetric rise and fall with respirations. Non-tender to palpation. Lungs: Clear to auscultation and percussion. No audible expiratory wheeze, egophony, pectoriloquy, increase in tactile fremitus, or flatness/dullness to percussion at the bases. Heart: Regular rate and rhythm. S1 and S2 noted. No S3 or S4 summation gallop. No tripartite friction rub. Grade II/ early systolic murmur at left lower sternal border without radiation to the carotids, axilla, or back, and which remains invariant in regards to the respiratory cycle. Abdomen: Soft, non-tender, non-distended. No rebound, guarding, Green's sign, or organomegaly. Bowel sounds auscultated in all 4 quadrants. Extremities: No clubbing, cyanosis, or edema. 2+ pedal pulses bilaterally. Skin: No decubitus ulcer, exanthem, or enanthem. Urology: No zarate catheter. No purewick. No urethral discharge. Neurology: Alert and oriented in regards to person, place, time, and situation. DTR+. 5/5 motor strength in all 4 extremities, both proximally and distally. Psychiatry: No flat affect. No monotone voice. Smiles appropriately. Discharge Plan Discharge Items Patient Disposition: Home - Self-Care Reason For Visit: LEFT PNEUMOTHORAX Discharge Diagnosis: Left pneumothorax RESOLVED on 02/08/2025. Condition on Discharge: Good Activity: Resume your previous activity Lifting: Gradually increase as tolerated Bathing: No limitations Exercise/Sports: Gradually increase as tolerated Weightbearing: Full weightbearing Non-emergency contact: Primary Care Provider Call non-emergency contact if: you have any medication questions Follow-up/Referrals: Luis Fernando Noriega DO [Primary Care Provider] - 02/13/25 10:30 am Diet: Heart Healthy Addtl Attending Provider Instructions: See your PCP Dr. Luis Fernando Noriega within 5-7 days for routine checkup. Pending Studies at Discharge: No Stand-Alone Forms: [facility] [employer], Smoking Cessation Medications and DC Order Prescriptions: Continued hydrochlorothiazide 25 mg tablet 25 mg PO QAM Qty: 90 3RF Patient Comments: atorvastatin 20 mg tablet 20 mg PO QPM Qty: 90 3RF (DME) Portable Oxygen Misc See Rx Instructions .MEDSUPPLY Qty: 1 0RF Rx Instructions: Oxygen 2 liters continuous via nasal cannula on exertion with portable concentrator. ELAYNE 99 multivitamin [Daily Multi-Vitamin] tablet 1 tab PO QPM cholecalciferol (vitamin D3) 125 mcg (5,000 unit) capsule 10,000 unit PO DAILY albuterol sulfate 90 mcg/actuation HFA aerosol inhaler 2 puff INH QID PRN (Reason: Shortness Of Breath Or Wheezing) Qty: 8.5 3RF Anoro Ellipta 62.5-25 mcg/actuation blister with device 1 inh inhalation DAILY Qty: 60 12RF Patient Comments: does not use every day, maybe uses 20 times per month calcium 500 mg Tablet 500 mg PO DAILY lisinopril 10 mg tablet 10 mg PO QAM finasteride 5 mg tablet 5 mg PO QPM Discharge Orders: Discharge Order (Routine); Ordered 02/08/25 Ordered By: Herbie Kan Admission Data Admit Date/Time: 02/07/25 11:08 Attending Provider: Herbie Kan Admit Provider: Tyrel Roach Primary Care Provider: Luis Fernando Noriega Other Providers: Tyrel Roach; Rito Blakely Other Interventions: Discharge Summary Assessment (RN) Last Done: 02/08/25 16:03 Hospital Stay Data Consultations 02/07/25 10:58 ED Decision to Admit Stat 02/07/25 11:08 Consult Pulmonology Routine Pending Results Patient Have Any Pending Studies at Discharge: No Discharge Instructions Given to Patient (Per Discharging Provider) See your PCP Dr. Luis Fernando Noriega within 5-7 days for routine checkup. Total Time Total Time Spent Total Time Spent (In Minutes): 35 minutes. Of this time period, 19 minutes were spent in coordinating patient's discharge. Coding Level of Care Code 45529 INP/OBS DISCH >30 MIN Diagnoses Pneumothorax after biopsy J95.811
== END 2025-02-08 17:00 | disposition home or self-care (01) | DRG 200 ==
LOC: ED 09:14 → SUATTDRO 11:08 → EDINP 11:08 → 2E 13:50

== ENCOUNTER 2025-04-14 10:12 | Observation (INO) ==
[2025-04-14 11:04] LABS: Hematocrit (blood only) 37.7 % (42.0-52.0); Hemoglobin 13.6 g/dL (14.0-18.0); Mean Corpuscular Hemoglobin 32.5 pg (25.0-34.0); Mean Corpuscular Volume 90.0 fL (80.0-100.0); Platelet Count 230 K/uL (130-400); RDW Standard Deviation 48.1 fL (36.4-46.3); Red Blood Count 4.19 M/uL (4.70-6.10); White Blood Count 16.54 K/ul (4.8-10.8)
[2025-04-14 11:30] LABS: Alanine Aminotransferase 17.0 U/L (7-52); Albumin Globulin Ratio 1.5 (0.9-2); Albumin Level 4.4 gm/dl (3.4-5.0); Alkaline Phosphatase 78.0 U/L (34-104); Anion Gap 10.0 (3-11); Bilirubin,Total 1.8 mg/dl (0.2-1.0); Blood Urea Nitrogen 23.0 mg/dl (6-23); Calcium 10.3 mg/dl (8.6-10.3); Carbon Dioxide 27.0 mmol/L (21-32); Chloride 99.0 mmol/L (98-107); Creatinine Clr Calc Pharmacy 61.2 ml/min; Globulin 2.9 gm/dl (2.5-4.0); Glucose 112.0 mg/dl (70-99(Fasting)); Lipase 3.0 U/L (11-82); Potassium 3.9 mmol/L (3.5-5.1); Sodium 136.0 mmol/L (136-145); Total Protein 7.3 gm/dl (6.0-8.3)
[2025-04-14 11:42] LABS: Immature Granulocytes # (auto) 0.36 K/uL (0.01-0.20); Immature Granulocytes % (auto) 2.2 %; Polychromasia 2+; Toxic Vacuolation 1+
--- NOTE | 2025-04-14 11:55 | Ultrasound Report ---
ULTRASOUND TESTES AND SCROTUM CLINICAL HISTORY: Right scrotal pain and swelling COMPARISON STUDY: No priors TECHNIQUE: Real-time, grayscale, and color Doppler sonography of the testes and scrotum is performed. Images are reviewed in the transverse and longitudinal planes. FINDINGS: The testes are normal in size and homogeneous in echotexture. The right testis measures 4.2 x 3.3 x 3 .8 cm and the left testis measures 4.3 x 2.7 x 2.2 cm. There is a 4 mm hypoechoic nodule in the right testis which appears to show flow on color imaging. A 2 mm cyst is suggested in the left testis. The right testis appears hyperemic. Normal Doppler arterial and venous waveforms are identified in both testes. The right epididymis appears enlarged and heterogeneous with hyperemia on color imaging. A left epidi dymal cyst measures 3 mm. The left epididymis is otherwise normal as imaged. A left-sided varicocele measures up to 3 mm. No right-sided varicocele is seen. There is a small comp carson right-sided hydrocele. The scrotal wall appears thickened. IMPRESSION: 1. The right testis and epididymis appear hyperemic suggesting epididymoorchitis. Correlate clinicall y. 2. There is no sonographic evidence of testicular torsion at the time of examination. 3. There is a 4 mm hypoechoic nodule in the right testis which appears to show flow on color imaging. A small neoplasm is not excluded. Outpatient follow-up with urology is advised, as is a repeat scrot al ultrasound in 4 months time for reevaluation. 4. There is a small complex right-sided hydrocele. 5. The scrotal wall appears thickened and edematous. 6. Small left-sided varicocele. ACT 112: Positive. There are findings on this exam that require communication between the performing entity and the patient following Patient Test Result Information Act ([place] Act 112) guidelines. Electronically signed by: Kj Jones M.D. 04/14/2025 11:53 AM
[2025-04-14] MEDS: cefTRIAXone SODIUM 2,000 MG/50 ML BAG IV STA (12:28)
[2025-04-14 12:55] LABS: Appearance Urine Cloudy (Clear); Bacteria Urine Automated 4+ (None Seen); Epithelial Cell Urine Auto 0-2 /hpf (0-2); Glucose Urine UA Negative (Negative); RBC Urine Automated 0-2 /hpf (0-2); WBC Urine Automated >50 /hpf (0-5)
[2025-04-14] MEDS ORDERED: ACETAMINOPHEN 325 MG TAB PO PRN (13:24)
[2025-04-14] MEDS ORDERED: ONDANSETRON INJ 2 MG/ML 2 ML VIAL IV PRN (13:24)
[2025-04-14] MEDS ORDERED: MELATONIN 3 MG TAB PO PRN (13:24)
[2025-04-14] MEDS ORDERED: POLYETHYLENE (MIRALAX) 17 GM PACK PO PRN (13:24)
--- NOTE | 2025-04-14 13:25 | Emergency Department Note ---
Impression & Plan Acute epididymo-orchitis, Cellulitis, UTI (urinary tract infection) ED Provider Note NAME: KEITH PEOPLES AGE: 80 SEX: M : 1945 ARRIVES VIA: Walk-In INFORMANT: Patient, ED PROVIDER(S): Coretta Davis MD CHIEF COMPLAINT: Right testicular swelling HPI: This is a 80-year-old male present for right testicular pain/swelling. Patient notes he is having difficulty with urinating due to penile/scrotal edema. Patient notes painful swelling to the right testicle starting Tuesday. Worsened yesterday. Today still worsening so he got worried and came to the ER. He has had subjective fevers at home and chills. He feels weak but otherwise no rigors currently. No hematuria. no Dysuria. ROS: See above HPI for pertinent positives & negatives. A total of 10 systems reviewed and were otherwise negative. PAST MEDICAL HISTORY: See Below PAST SURGICAL HISTORY: See Below FAMILY HISTORY: See Below SOCIAL HISTORY: See Below HOME MEDICATIONS: See Below ALLERGIES: See Below VITALS: See Below PHYSICAL EXAMINATION: General: resting comfortably in no acute distress Head: Normocephalic and atraumatic Eyes: Normal inspection, extraocular muscles intact Ear, nose, throat: Normal external exam Neck: Normal range of motion Respiratory: lungs clear to auscultation bilaterally Cardiovascular: Regular rate/rhythm, no murmur GI: soft, nontender, no guarding or rebound : Exquisite right testicular swelling with redness, erythema, rash to the thighs edema to the scrotum/penis Extremities: nontender, moves all extremities Neuro: The patient awake and alert, appropriately conversive, no focal deficits, symmetric faces Skin: Warm, dry, and intact MEDICAL DECISION MAKING: This is a 80-year-old male presenting for right testicular pain/swelling. Consider orchitis, scrotal cellulitis, Davide's gangrene however there is no crepitus currently. Patient was minimally tachycardic on arrival with subjective fevers and chills at home. - Patient's blood work reveals a leukocytosis to 16.54 as well as toxic vacuolization on differential - Ultrasound reveals signs of epididymoorchitis. No evidence of torsion. There is also a hypoechoic nodule in the right testes which will require follow-up in 4 months - Scrotal wall appears thickened/edematous -Patient given IV ceftriaxone for infection after discussion with pharmacist -With patient's elevated WBC, subjective fever/chills, positive urinalysis, concern for slight cellulitis, will admit the patient for further evaluation and treatment. Differential diagnosis: Davide's gangrene, scrotal cellulitis, orchitis, epididymitis, UTI, sepsis Independent History obtained from: Diagnostics interpreted by me: ECG: None Cardiac Monitoring: An order was placed for continuous cardiac monitoring. The monitor shows a rate of 82 with sinus rhythm. Past Med/Surg History Problem List (Updated 04/14/25 @ 17:35 by Coretta Davis MD) UTI (urinary tract infection) (Acute) Cellulitis (Acute) Acute epididymo-orchitis (Acute) Hyperbilirubinemia Cellulitis Epididymo-orchitis, acute Abnormal positron emission tomography (PET) scan Pneumothorax Coronary artery calcification Abnormal chest CT [place] Hearing loss uses hearing aids History of colon polyps Chronic respiratory failure with hypoxia Low back pain Edema, lower extremity Obesity Exertional shortness of breath Left leg swelling COPD with emphysema Left knee pain History of smoking greater than 50 pack years quit 09/2021 Vitamin D deficiency (Acute) Osteoporosis (Acute) MGUS (monoclonal gammopathy of unknown significance) (Acute) Hypertension (Acute) Dyslipidemia (Acute) Benign prostatic hyperplasia (Acute) Medical History Pneumothorax after biopsy Pulmonary nodule Chronic respiratory failure with hypoxia Hx of osteoporosis Exertional shortness of breath ETD (eustachian tube dysfunction) Acute prostatitis Mixed hearing loss, bilateral DVT (deep venous thrombosis) Elevated PSA COPD exacerbation On home oxygen therapy Surgical History S/P bronchoscopy History of esophagogastroduodenoscopy (EGD) Hx of colonoscopy (2022) Hx of bilateral cataract extraction History of laparoscopic cholecystectomy Family History Brother Myocardial infarction Cancer Sister Breast cancer, Onset Age: 70 Myocardial infarction Father Prostate cancer Sister Pancreatic cancer, Onset Age: 68 Sister Pancreatic cancer, Onset Age: 80 Father Prostate cancer, Onset Age: 72 Mother No problems noted. Sister No problems noted. Brother Deep vein thrombosis Osteoporosis Brother No problems noted. Denies family history of Ovarian cancer Colorectal cancer Social History Smoking Status: Former smoker Tobacco Type: Cigarettes Age Started Using Tobacco: 16; Age Quit Using Tobacco: 76; packs per day: 1; Cigarettes Per Day: 20; Second Hand Exposure: No; Do You Dip or Chew Tobacco: No; Tobacco Cessation Education Requested by Patient: No Hx Alcohol Use: No Hx Substance Use: No Preferred Language: Filipino Communication Ability: Effective Visual Impairment: Limited Hearing Ability: Use of Hearing Aid Debt Recovery Officer Required: No Beliefs That Will Affect Care: None marital status: Current Living Situation: Spouse current occupational status: retired current occupation: [employer] How many Children do You have: 2 Other Information That Helps Us Care for You: No Feels Safe at Home: Yes Safety Concerns: Feels Safe At This Time Childhood Exposure to Second-Hand Smoke: Yes Diet: regular caffeine: Yes during the past year weight has: remained stable Dental Care, Regularly: Yes Physical Activity Frequency: Daily Seatbelt Use: never Sunscreen Use: Yes (sometimes) Do you think of yourself as: straight/heterosexual Sexual Activity: has been sexually active, but not for at least 12 months Gender Identity: Male Assistive Devices: Glasses and Hearing Aid - Bilateral Allergies Allergies Allergy/AdvReac Type Severity Reaction Status Date / Time No Known Drug Allergies AdvReac Verified 04/14/25 14:25 Home Meds Home Medications Medication Instructions Recorded Confirmed multivitamin (Daily Multi-Vitamin 1 tab PO QPM 12/02/18 04/14/25 tablet) calcium 500 mg tablet 500 mg PO DAILY 10/09/21 04/14/25 cholecalciferol (vitamin D3) 125 10,000 unit PO DAILY 06/07/22 04/14/25 mcg (5,000 unit) capsule finasteride 5 mg tablet 5 mg PO QPM 01/16/25 04/14/25 lisinopril 10 mg tablet 10 mg PO QAM 01/16/25 04/14/25 Previous Rx's Medication Instructions Recorded Portable Oxygen #1 ea 06/11/22 albuterol sulfate 90 mcg/actuation 2 puff inhalation QID PRN 03/12/24 aerosol inhaler Shortness Of Breath Or Wheezing #8.5 grams umeclidinium 62.5 mcg-vilanterol 1 inh inhalation DAILY #60 ea 03/12/24 25 mcg/actuation powdr for inhalation (Anoro Ellipta) atorvastatin 20 mg tablet 20 mg PO QPM #90 tabs 07/30/24 lorazepam 0.5 mg tablet (Ativan) 0.5 mg PO DAILY PRN anxiety #5 tabs 02/19/25 hydrochlorothiazide 25 mg tablet 25 mg PO QAM #90 tabs 03/29/25 Results & Data (ED) Vital Signs Vital Signs - 24 hr 04/14/25 10:14 04/14/25 12:12 04/14/25 12:48 Temperature 36.8 C Temperature Source Temporal Artery Scan Pulse Rate 102 H 78 Pulse Rate [Apical] 78 Pulse Strength [Apical] Normal Respiratory Rate 17 18 Respiratory Effort / Characteristics Non-Labored Spontaneous Respiratory Depth Normal Respiratory Pattern Regular Blood Pressure 113/69 Blood Pressure [Left Arm] 156/93 H Blood Pressure Mean 83 Blood Pressure Mean [Left Arm] 114 Pulse Oximetry 91 95 Oxygen Delivery Method Room Air Room Air Sepsis Recent Fever Within 48 Hours No Sepsis New/Unexplained Change in Mental Status N/A Sepsis Action Taken by Nursing No Action Required Laboratory Data 04/14/25 10:45 04/14/25 10:45 Lab Results 04/14/25 04/14/25 Range/Units 10:45 12:30 WBC 16.54 H (4.8-10.8) K/ul RBC 4.19 L (4.70-6.10) M/uL Hgb 13.6 L (14.0-18.0) g/dL Hct 37.7 L (42.0-52.0) % MCV 90.0 (80.0-100.0) fL MCH 32.5 (25.0-34.0) pg MCHC 36.1 H (32.0-36.0) g/dL RDW Std Deviation 48.1 H (36.4-46.3) fL RDW Coeff of Linda 14.7 H (11.5-14.5) % Plt Count 230 (130-400) K/uL MPV 9.1 L (9.4-12.4) fL Immature Gran % (Auto) 2.2 % Neut % (Auto) 85.0 % Lymph % (Auto) 3.4 % [place] % (Auto) 9.2 % Eos % (Auto) 0.0 % Baso % (Auto) 0.2 % Neut # (Auto) 14.05 H (1.40-6.50) K/uL Lymph # (Auto) 0.57 L (1.20-3.40) K/uL [place] # (Auto) 1.52 H (0.11-0.59) K/uL Eos # (Auto) 0.00 (0.00-0.50) K/uL Baso # (Auto) 0.04 (0.00-0.20) K/uL Immature Gran # (Auto) 0.36 H (0.01-0.20) K/uL Toxic Vacuolation 1+ Polychromasia 2+ Sodium 136 (136-145) mmol/L Potassium 3.9 (3.5-5.1) mmol/L Chloride 99 (98-107) mmol/L Carbon Dioxide 27 (21-32) mmol/L Anion Gap 10 (3-11) BUN 23 (6-23) mg/dl Creatinine 1.15 (0.6-1.4) mg/dl Est Cr Clr Drug Dosing 61.2 ml/min eGFR 64.74 BUN/Creatinine Ratio 20.0 (10-20) Glucose 112 H (70-99(Fasting)) mg/dl Calcium 10.3 (8.6-10.3) mg/dl Total Bilirubin 1.8 H (0.2-1.0) mg/dl AST 18 (13-39) U/L ALT 17 (7-52) U/L Alkaline Phosphatase 78 (34-104) U/L Total Protein 7.3 (6.0-8.3) gm/dl Albumin 4.4 (3.4-5.0) gm/dl Globulin 2.9 (2.5-4.0) gm/dl Albumin/Globulin Ratio 1.5 (0.9-2) Lipase 3 L (11-82) U/L Procalcitonin 2.21 H (0-0.5) ng/ml Urine Color Yellow Urine Appearance Cloudy A (Clear) Urine pH 5.5 (4.5-7.5) Ur Specific [place] 1.021 (1.000-1.030) Urine Protein Trace H (Negative) Urine Glucose (UA) Negative (Negative) Urine Ketones Negative (Negative) Urine Blood Trace H (Negative) Urine Nitrite Positive A (Negative) Urine Bilirubin Negative (Negative) Urine Urobilinogen Negative (Negative) Ur Leukocyte Esterase 3+ H (Negative) Urine WBC (Auto) >50 H (0-5) /hpf Urine RBC (Auto) 0-2 (0-2) /hpf U Hyaline Cast (Auto) 3-5 H (0-2) /lpf U Epithel Cells (Auto) 0-2 (0-2) /hpf Urine Bacteria (Auto) 4+ H (None Seen) Urine Comment Administered Medications Ciprofloxacin (Cipro / D5w) 400 mg in 200 mls @ 100 mls/hr IV Q12H [facility]; Protocol Stop: 04/24/25 15:59 Last Admin: 04/14/25 15:51 Dose: 100 mls/hr Documented By: TYRON Sodium Chloride (Nss) 1,000 mls @ 80 mls/hr IV .[id number] ERNESTO Stop: 04/15/25 14:44 Last Admin: 04/14/25 15:36 Dose: 80 mls/hr Documented By: TYRON Discontinued Medications Ceftriaxone Sodium (Rocephin) 2,000 mg in 50 mls @ 100 mls/hr IV NOW STA Stop: 04/14/25 12:47 Last Infusion: 04/14/25 13:09 Dose: Infused Documented By: Admin: 04/14/25 12:28 Dose: 100 mls/hr Documented By: TDAlana Imaging Data Radiologist's Impression: Scrotum Ultrasound 04/14/25 10:34 ULTRASOUND TESTES AND SCROTUM CLINICAL HISTORY: Right scrotal pain and swelling COMPARISON STUDY: No priors TECHNIQUE: Real-time, grayscale, and color Doppler sonography of the testes and scrotum is performed. Images are reviewed in the transverse and longitudinal planes. FINDINGS: The testes are normal in size and homogeneous in echotexture. The right testis measures 4.2 x 3.3 x 3.8 cm and the left testis measures 4.3 x 2.7 x 2.2 cm. There is a 4 mm hypoechoic nodule in the right testis which appears to show flow on color imaging. A 2 mm cyst is suggested in the left testis. The right testis appears hyperemic. Normal Doppler arterial and venous waveforms are identified in both testes. The right epididymis appears enlarged and heterogeneous with hyperemia on color imaging. A left epididymal cyst measures 3 mm. The left epididymis is otherwise normal as imaged. A left-sided varicocele measures up to 3 mm. No right-sided varicocele is seen. There is a small complex right-sided hydrocele. The scrotal wall appears thickened. IMPRESSION: 1. The right testis and epididymis appear hyperemic suggesting epididymoorchitis. Correlate clinically. 2. There is no sonographic evidence of testicular torsion at the time of examination. 3. There is a 4 mm hypoechoic nodule in the right testis which appears to show flow on color imaging. A small neoplasm is not excluded. Outpatient follow-up with urology is advised, as is a repeat scrotal ultrasound in 4 months time for reevaluation. 4. There is a small complex right-sided hydrocele. 5. The scrotal wall appears thickened and edematous. 6. Small left-sided varicocele. ACT 112: Positive. There are findings on this exam that require communication between the performing entity and the patient following Patient Test Result Information Act ([place] Act 112) guidelines. Electronically signed by: Kj Jones M.D. 04/14/2025 11:53 AM Discharge Plan Visit Data Chief Complaint: Testicular Pain Stated Complaint: SWOLLEN TESTICLE ED Provider: Coretta Davis Discharge Problem: Acute epididymo-orchitis, Cellulitis, UTI (urinary tract infection) Patient Disposition: Admitted As Inpatient Condition: Fair Discharge Instructions Interventions: ED Discharge Assessment Last Done: 04/14/25 15:12
--- NOTE | 2025-04-14 13:43 | History & Physical Report ---
Date of Service April 14, 2025 Assessment & Plan (1) Epididymo-orchitis, acute: (2) Cellulitis: (3) Benign prostatic hyperplasia: (4) COPD with emphysema: (5) Hyperbilirubinemia: Plan This is a 80 year old gentleman with past medical history of COPD, MGUS, osteoporosis who presented to the ED on 04/14/2025 for right testicular pain. While in the ED, he underwent a scrotal US that was revealing of epididymoorchitis. His UA was also + for a UTI & UC is pending. He does have WBC of 16.54. BMP w/ stable renal function & electrolytes. TB incidentally elevated at 1.8. Procal pending. #Epididymoorchitis of right testicle + Cellulitis w/ ~ 2d hx of testicle pain & developing of erythema. Scrotal US: right testis and epididymis appear hyperemic suggesting epididymoorchitis. No evidence of testicular torsion. 4mm hypoechoic nodule in right testis which cannot exclude small neopasm. --> will require outpatient follow up w/ urology & repeat scrotal US in 4 months. Sm complex R sided hydrocele. Scrotal wall appears thickened & edematous. CBC w/ leukocytosis of 16.54, procal pending (if + will obtain BC) BMP w/ stable renal function + electrolytes. UA + for Infx --> UC pending (has hx of pansensitive e. coli) s/p IV Rocephin in ED --> switch to IV Cipro BID on admission. Continue IVF #Hyperbilirubinemia Incidental TB of 1.8 on admission, upon review, is typically WNL. Remainder of LFTs WNL. Recheck in AM along with a direct bili, continue to trend for now. #BPH - Finasteride #COPD Not in an acute exacerbation, appears stable. Continue home inhaler #HTN Hold HCTZ in setting of acute infection Continue Lisinopril #HLD - continue Statin DVT prophylaxis: Lovenox Code: full updated at bedside w/ admission plans Case was discussed with Dr. Boyd at time of admission. History of Present Illness Primary Care Provider: Luis Fernando Noriega, DO This is a 80 year old gentleman with past medical history of COPD, MGUS, osteoporosis who presented to the ED on 04/14/2025 for right testicular pain. Sebastian was seen & examined w/ his at bedside. He reports that on Tuesday, he began to experience a small amount of pain in his right testicle. He then reports that the pain started to worsen and it became red and swollen. He denies any discharge in the area or any open wounds. He denies any fevers but did have an episode of chills yesterday. He states he is able to urinate without diff iculty and denies any burning/pain w/ urination. He denied any additional complaints including CP, SOB, N/V, abd pain, LE edema. While in the ED, he underwent a scrotal US that was revealing of epidi dymoorchitis. His UA was also + for a UTI & UC is pending. He does have WBC of 16.54. BMP w/ stable renal function & electrolytes. TB incidentally elevated at 1.8. Procal pending. Code discussion did take place and he does confirm that he is a full code. Allergies Allergy/AdvReac Type Severity Reaction Status Date / Time No Known Drug Allergies AdvReac Verified 02/28/25 08:12 Home Medications Medication Instructions Recorded Confirmed Type multivitamin (Daily Multi-Vitamin 1 tab PO QPM 12/02/18 03/20/25 History tablet) calcium 500 mg tablet 500 mg PO DAILY 10/09/21 03/20/25 History cholecalciferol (vitamin D3) 125 10,000 unit PO DAILY 06/07/22 03/20/25 History mcg (5,000 unit) capsule Portable Oxygen #1 ea 06/11/22 03/20/25 Rx albuterol sulfate 90 mcg/actuation 2 puff inhalation QID PRN 03/12/24 03/20/25 Rx aerosol inhaler Shortness Of Breath Or Wheezing #8.5 grams umeclidinium 62.5 mcg-vilanterol 1 inh inhalation DAILY #60 ea 03/12/24 03/20/25 Rx 25 mcg/actuation powdr for inhalation (Anoro Ellipta) atorvastatin 20 mg tablet 20 mg PO QPM #90 tabs 07/30/24 03/20/25 Rx finasteride 5 mg tablet 5 mg PO QPM 01/16/25 03/20/25 History lisinopril 10 mg tablet 10 mg PO QAM 01/16/25 03/20/25 History lorazepam 0.5 mg tablet (Ativan) 0.5 mg PO DAILY PRN anxiety #5 tabs 02/19/25 03/20/25 Rx hydrochlorothiazide 25 mg tablet 25 mg PO QAM #90 tabs 03/29/25 Rx Past Med/Surg History Problem List (Updated 04/14/25 @ 13:39 by Angelica Lanier PA-C) Hyperbilirubinemia Cellulitis Epididymo-orchitis, acute Abnormal positron emission tomography (PET) scan Pneumothorax Coronary artery calcification Abnormal chest CT [place] Hearing loss uses hearing aids History of colon polyps Chronic respiratory failure with hypoxia Low back pain Edema, lower extremity Obesity Exertional shortness of breath Left leg swelling COPD with emphysema Left knee pain History of smoking greater than 50 pack years quit 09/2021 Vitamin D deficiency (Acute) Osteoporosis (Acute) MGUS (monoclonal gammopathy of unknown significance) (Acute) Hypertension (Acute) Dyslipidemia (Acute) Benign prostatic hyperplasia (Acute) Medical History Pneumothorax after biopsy Pulmonary nodule Chronic respiratory failure with hypoxia Hx of osteoporosis Exertional shortness of breath ETD (eustachian tube dysfunction) Acute prostatitis Mixed hearing loss, bilateral DVT (deep venous thrombosis) Elevated PSA COPD exacerbation On home oxygen therapy Surgical History S/P bronchoscopy History of esophagogastroduodenoscopy (EGD) Hx of colonoscopy (2022) Hx of bilateral cataract extraction History of laparoscopic cholecystectomy Family History Brother Myocardial infarction Cancer Sister Breast cancer, Onset Age: 70 Myocardial infarction Father Prostate cancer Sister Pancreatic cancer, Onset Age: 68 Sister Pancreatic cancer, Onset Age: 80 Father Prostate cancer, Onset Age: 72 Mother No problems noted. Sister No problems noted. Brother Deep vein thrombosis Osteoporosis Brother No problems noted. 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 Beliefs That Will Affect Care: None marital status: Current Living Situation: Spouse current occupational status: retired current occupation: [employer] How many Children do You have: 2 Feels Safe at Home: Yes Childhood Exposure to Second-Hand Smoke: Yes Diet: regular caffeine: Yes during the past year weight has: remained stable Dental Care, Regularly: Yes Physical Activity Frequency: Daily Seatbelt Use: never Sunscreen Use: Yes (sometimes) Do you think of yourself as: straight/heterosexual Sexual Activity: has been sexually active, but not for at least 12 months Gender Identity: Male Assistive Devices: None Physical Exam Physical Exam: General: NAD, VS: BP 156/93; P78; R18; T36.8C Resp: normal respiratory effort, lungs clear to auscultation CV: RRR, no murmur Abd: normal bowel sounds, non tender, soft : erythema of groin region. R testicle appears swollen, warm to touch, tender/firm to palpation. No discharge identified. Extremities: Moves all extremities, no edema Neuro: A&O x3 Skin: intact, no lesions noted Results & Data Results & Data Vital Signs (Past 12 Hours) Vital Signs Temp Pulse Pulse Resp BP BP Pulse Ox 04/14/25 12:48 78 04/14/25 12:12 78 18 156/93 H 95 04/14/25 10:14 36.8 C 102 H 17 113/69 91 O2 Del Method 04/14/25 12:48 04/14/25 12:12 Room Air 04/14/25 10:14 Room Air PG Care Time/CCT Total # of Minutes Spent Total Time Spent with Patient: Total time spent is greater than 50% in coordination of care (as documented) at patient's floor/unit and/or counseling patient: Coding Level of Care Code 27182 INT INP/OBS CARE 3/75MIN Diagnoses Epididymo-orchitis, acute N45.3 Cellulitis L03.90 Benign prostatic hyperplasia N40.0 COPD with emphysema J43.9 Hyperbilirubinemia E80.6
[2025-04-14] MEDS: SODIUM CHLORIDE 0.9% 1,000 ML IV SCH (15:36)
[2025-04-14] MEDS: CIPROFLOXACIN / D5W 400 MG/200 ML BAG IV SCH (15:51)
[2025-04-14] MEDS: ATORVASTATIN 20 MG TAB PO SCH (21:23)
[2025-04-14] MEDS: FINASTERIDE 5 MG TAB PO SCH (21:23)
[2025-04-14] MEDS: ENOXAPARIN INJ 40 MG/0.4 ML SYR SQ SCH (21:23)
[2025-04-15 06:12] LABS: Hematocrit (blood only) 30.1 % (42.0-52.0); Hemoglobin 10.8 g/dL (14.0-18.0); Immature Granulocytes # (auto) 0.13 K/uL (0.01-0.20); Immature Granulocytes % (auto) 1.2 %; Mean Corpuscular Hemoglobin 32.3 pg (25.0-34.0); Mean Corpuscular Volume 90.1 fL (80.0-100.0); Platelet Count 167 K/uL (130-400); RDW Standard Deviation 48.1 fL (36.4-46.3); Red Blood Count 3.34 M/uL (4.70-6.10); White Blood Count 11.26 K/ul (4.8-10.8)
[2025-04-15 06:41] LABS: Alanine Aminotransferase 11.0 U/L (7-52); Albumin Globulin Ratio 1.5 (0.9-2); Albumin Level 3.5 gm/dl (3.4-5.0); Alkaline Phosphatase 63.0 U/L (34-104); Anion Gap 8.0 (3-11); Bilirubin,Total 1.0 mg/dl (0.2-1.0); Blood Urea Nitrogen 19.0 mg/dl (6-23); Calcium 9.0 mg/dl (8.6-10.3); Carbon Dioxide 26.0 mmol/L (21-32); Chloride 101.0 mmol/L (98-107); Creatinine Clr Calc Pharmacy 80.9 ml/min; Globulin 2.3 gm/dl (2.5-4.0); Glucose 146.0 mg/dl (70-99(Fasting)); Potassium 3.4 mmol/L (3.5-5.1); Sodium 135.0 mmol/L (136-145); Total Protein 5.8 gm/dl (6.0-8.3)
[2025-04-15] MEDS: UMECLIDINIUM/VILANTEROL 62.5/25MCG 7 PUFFS/INHALER INH SCH (07:48)
--- NOTE | 2025-04-15 23:43 | Hospitalist Progress Note ---
Date of Service April 15, 2025 Assessment & Plan (1) Epididymo-orchitis, acute: (2) Cellulitis: (3) Benign prostatic hyperplasia: (4) COPD with emphysema: (5) Hyperbilirubinemia: Plan This is a 80 year old gentleman with past medical history of COPD, MGUS, osteoporosis who presented to the ED on 04/14/2025 for right testicular pain. While in the ED, he underwent a scrotal US that was revealing of epididymoorchitis. His UA was also + for a UTI & UC is pending. He does have WBC of 16.54. BMP w/ stable renal function & electrolytes. TB incidentally elevated at 1.8. Procal pending. #Epididymoorchitis of right testicle + Cellulitis +likely chronic prostatitis w/ ~ 2d hx of testicle pain & developing of erythema. Scrotal US: right testis and epididymis appear hyperemic suggesting epididymoorchitis. No evidence of testicular torsion. 4mm hypoechoic nodule in right testis which cannot exclude small neopasm. --> will require outpatient follow up w/ urology & repeat scrotal US in 4 months. Sm complex R sided hydrocele. Scrotal wall appears thickened & edematous. CBC w/ leukocytosis of 16.54, procal pending (if + will obtain BC) BMP w/ stable renal function + electrolytes. UA + for Infx --> UC pending (has hx of pansensitive e. coli) s/p IV Rocephin in ED --> switch to IV Cipro BID on admission. WBC showing improvement, will stop IVF. Continue current antibootics. Patient will likely benefit from10 days of FQ for epididymo-orchitis but will switch to bactrim to complete course of 4 weeks for prostatis given his recurrent UTI and reactive PSA that improved after antibiotics. #Hyperbilirubinemia Incidental TB of 1.8 on admission, upon review, is typically WNL. Remainder of LFTs WNL. resolved. #BPH - Finasteride #COPD Not in an acute exacerbation, appears stable. Continue home inhaler #HTN Hold HCTZ in setting of acute infection Continue Lisinopril #HLD - continue Statin DVT prophylaxis: Lovenox Code: full updated at bedside w/ admission plans Admission and Anticipated Discharge Date Admission Date: April 14, 2025 Subjective Patient reports having recurrent UTIs.He notices more swelling of his testicles and penis. Physical Exam Physical Exam: General: NAD, VS: BP 156/93; P78; R18; T36.8C Resp: normal respiratory effort, lungs clear to auscultation CV: RRR, no murmur Abd: normal bowel sounds, non tender, soft : erythema of groin region. R testicle appears swollen, warm to touch, tender/firm to palpation.Foreskin around penis appears swollen too. No di scharge identified. Extremities: Moves all extremities, no edema Neuro: A&O x3 Skin: intact, no lesions noted Constitutional: WD/WN, vitals as above Results & Data Results & Data Vital Signs (Past 12 Hours) Vital Signs Temp Pulse Resp BP Pulse Ox O2 Del Method 04/15/25 21:48 36.6 C 70 14 105/64 95 Room Air 04/15/25 15:34 37.0 C 75 16 121/73 93 Room Air PG Care Time/CCT Total # of Minutes Spent Total Time Spent with Patient: Total time spent is greater than 50% in coordination of care (as documented) at patient's floor/unit and/or counseling patient: Coding Level of Care Code 71651 SUB INP/OBS CARE 3/50MIN Diagnoses Epididymo-orchitis, acute N45.3 Cellulitis L03.90 Benign prostatic hyperplasia N40.0 COPD with emphysema J43.9 Hyperbilirubinemia E80.6
[2025-04-16 06:35] LABS: Hematocrit (blood only) 30.2 % (42.0-52.0); Hemoglobin 10.5 g/dL (14.0-18.0); Mean Corpuscular Hemoglobin 31.7 pg (25.0-34.0); Mean Corpuscular Volume 91.2 fL (80.0-100.0); Platelet Count 202 K/uL (130-400); RDW Standard Deviation 49.5 fL (36.4-46.3); Red Blood Count 3.31 M/uL (4.70-6.10); White Blood Count 7.42 K/ul (4.8-10.8)
[2025-04-16 06:58] LABS: Anion Gap 7.0 (3-11); Blood Urea Nitrogen 16.0 mg/dl (6-23); Calcium 8.8 mg/dl (8.6-10.3); Carbon Dioxide 26.0 mmol/L (21-32); Chloride 104.0 mmol/L (98-107); Creatinine Clr Calc Pharmacy 84.8 ml/min; Glucose 118.0 mg/dl (70-99(Fasting)); Potassium 3.3 mmol/L (3.5-5.1); Sodium 137.0 mmol/L (136-145)
[2025-04-16 07:26] VITALS: BP 119/72; PULSE 67; RESP 16; TEMP 97.7; O2SAT 92
[2025-04-16] MEDS: POTASSIUM CHLORIDE CRTAB 20 MEQ TABCR PO STA (11:01)
--- NOTE | 2025-04-16 11:19 | Discharge Summary ---
Discharge Summary Date of Service April 16, 2025 Principal Dx & Hospital Course #1 = Principal Diagnosis (1) Epididymo-orchitis, acute: (2) Cellulitis: (3) Benign prostatic hyperplasia: (4) COPD with emphysema: (5) Hyperbilirubinemia: Plan This is a 80 year old gentleman with past medical history of COPD, MGUS, osteoporosis who presented to the ED on 04/14/2025 for right testicular pain. While in the ED, he underwent a scrotal US that was revealing of epididymoorchitis. His UA was also + for a UTI & UC is pending. He does have WBC of 16.54. BMP w/ stable renal function & electrolytes. TB incidentally elevated at 1.8. Procal pending. #Epididymoorchitis of right testicle + Cellulitis +likely chronic prostatitis w/ ~ 2d hx of testicle pain & developing of erythema. Scrotal US: right testis and epididymis appear hyperemic suggesting epididymoorchitis. No evidence of testicular torsion. 4mm hypoechoic nodule in right testis which cannot exclude small neopasm. --> will require outpatient follow up w/ urology & repeat scrotal US in 4 months. Sm complex R sided hydrocele. Scrotal wall appears thickened & edematous. CBC w/ leukocytosis of 16.54, procal pending (if + will obtain BC) BMP w/ stable renal function + electrolytes. UA + for Infx --> UC pending (has hx of pansensitive e. coli) s/p IV Rocephin in ED --> switch to IV Cipro BID on admission. WBC showing improvement, will stop IVF. Continue current antibootics. Patient will likely benefit from10 days of FQ for epididymo-orchitis but will switch to bactrim to complete course of 4 weeks for prostatis given his recurrent UTI and reactive PSA that improved after antibiotics. #Hyperbilirubinemia Incidental TB of 1.8 on admission, upon review, is typically WNL. Remainder of LFTs WNL. resolved. #BPH - Finasteride #COPD Not in an acute exacerbation, appears stable. Continue home inhaler #HTN Hold HCTZ in setting of acute infection Continue Lisinopril #HLD - continue Statin DVT prophylaxis: Lovenox Code: full updated at bedside w/ admission plans Admission HPI Per Admitting Provider This is a 80 year old gentleman with past medical history of COPD, MGUS, osteoporosis who presented to the ED on 04/14/2025 for right testicular pain. Sebastian was seen & examined w/ his at bedside. He reports that on Tuesday, he began to experience a small amount of pain in his right testicle. He then reports that the pain started to worsen and it became red and swollen. He denies any discharge in the area or any open wounds. He denies any fevers but did have an episode of chills yesterday. He states he is able to urinate without difficulty and denies any burning/pain w/ urination. He denied any additional complaints including CP, SOB, N/V, abd pain, LE edema. While in the ED, he underwent a scrotal US that was revealing of epididymoorchitis. His UA was also + for a UTI & UC is pending. He does have WBC of 16.54. BMP w/ stable renal function & electrolytes. TB incidentally elevated at 1.8. Procal pending. Code discussion did take place and he does confirm that he is a full code. Discharge Plan Discharge Items Patient Disposition: Home - Self-Care Reason For Visit: RIGHT TESTICULAR PAIN Discharge Diagnosis: Infection of right testicle Condition on Discharge: Fair Activity: Resume your previous activity Non-emergency contact: Primary Care Provider Call non-emergency contact if: you have any medication questions Follow-up/Referrals: Luis Fernando Noriega DO [Primary Care Provider] - 05/01/25 11:00 am Diet: Regular Addtl Attending Provider Instructions: Urology will schedule a follow up. Will continue ciprofloxacin to complete 10 days. Next dose will be tonight. Then this will be followed by Bactrim for 20 days. Pending Studies at Discharge: No Stand-Alone Forms: My [facility], Smoking Cessation Medications and DC Order Prescriptions: New sulfamethoxazole-trimethoprim [Bactrim DS] 800-160 mg tablet 1 tab PO BID Qty: 20 0RF Rx Instructions: start after finishing ciprofloxacin ciprofloxacin HCl [Cipro] 500 mg tablet 500 mg PO Q12H Qty: 16 0RF Rx Instructions: First dose tonight Continued atorvastatin 20 mg tablet 20 mg PO QPM Qty: 90 3RF lorazepam [Ativan] 0.5 mg tablet 0.5 mg PO DAILY PRN (Reason: anxiety) Qty: 5 0RF Rx Instructions: Take 1-2 tabs 30 minutes before MRI of the brain hydrochlorothiazide 25 mg tablet 25 mg PO QAM Qty: 90 3RF Patient Comments: (DME) Portable Oxygen Misc See Rx Instructions .MEDSUPPLY Qty: 1 0RF Rx Instructions: Oxygen 2 liters continuous via nasal cannula on exertion with portable concentrator. ELAYNE 99 multivitamin [Daily Multi-Vitamin] tablet 1 tab PO QPM cholecalciferol (vitamin D3) 125 mcg (5,000 unit) capsule 10,000 unit PO DAILY albuterol sulfate 90 mcg/actuation HFA aerosol inhaler 2 puff INH QID PRN (Reason: Shortness Of Breath Or Wheezing) Qty: 8.5 3RF Anoro Ellipta 62.5-25 mcg/actuation blister with device 1 inh inhalation DAILY Qty: 60 12RF Patient Comments: does not use every day, maybe uses 20 times per month calcium 500 mg Tablet 500 mg PO DAILY lisinopril 10 mg tablet 10 mg PO QAM finasteride 5 mg tablet 5 mg PO QPM Discharge Orders: Discharge Order (Routine); Ordered 04/16/25 Ordered By: Georges Boyd Admission Data Admit Date/Time: 04/14/25 13:19 Attending Provider: Georges Boyd Admit Provider: Georges Boyd Primary Care Provider: Luis Fernando Noriega Hospital Stay Data Diagnostic Imagining Performed 04/14/25 10:34 US scrotum/testicle Stat Pending Results Patient Have Any Pending Studies at Discharge: No Discharge Instructions Given to Patient (Per Discharging Provider) Urology will schedule a follow up. Will continue ciprofloxacin to complete 10 days. Next dose will be tonight. Then this will be followed by Bactrim for 20 days. Coding Diagnoses Epididymo-orchitis, acute N45.3 Cellulitis L03.90 Benign prostatic hyperplasia N40.0 COPD with emphysema J43.9 Hyperbilirubinemia E80.6
== END 2025-04-16 12:47 | disposition home or self-care (01) | DRG 728 ==
LOC: SUATTDRO → ED 10:12 → INTOOBSV 13:19 → 3E 13:19